=== PATIENT | male | born 1945 | race Caucasian/White ===

== ENCOUNTER → 2022-08-11 12:51 | Outpatient (BNVA) | payer MEDICARE, BC, SELFPAY | PROVIDERS: PCP Nurse Practitioner; Visit Provider Student in an Organized Health Care Education/Training Program | DX: M06.9 Rheumatoid arthritis, unspecified (principal) | CPT/HCPCS: 99202 ==

== ENCOUNTER 2023-02-09 09:28 | Outpatient (AMB) | payer MEDICARE, BC, SELFPAY ==
[2023-02-09 09:32] VITALS: BP 126/68; PULSE 61; TEMP 36.3; O2SAT 97; BMI 25.9
--- NOTE | 2023-02-09 09:32 | MHC.OFFVIS ---
Intake Vital Signs 02/09/23 09:32 Height 5 ft 9 in Weight 175 lb 7.807 oz BMI 25.9 BP 126/68 Blood Pressure Location Rt brachial Position Sitting Pulse 61 Pulse Source Pulse Oximeter Temp 97.4 F Temp Source Skin Pulse Oximetry (%) 97 Intake Visit Reasons: RA Intake Note: Pt seen today for RA. Reports left knee flare up November 17, lasted 3 weeks. Cosmetic Account Coordinator Required: No Accompanied by: Self / Same As Patient Allergies atorvastatin Allergy (Intermediate, Verified 02/09/23 09:35) muscle pain Penicillins Allergy (Intermediate, Verified 02/09/23 09:35) Diarrhea rosuvastatin [From Crestor] Allergy (Intermediate, Verified 02/09/23 09:35) joint pain tramadol Allergy (Intermediate, Verified 02/09/23 09:35) Diarrhea Medication List - Last Reconciled 02/09/23 by Juan Mejia MD amitriptyline 10 mg PO BEDTIME cholecalciferol (vitamin D3) 125 mcg PO DAILY docusate sodium 200 mg SD DAILY PRN docusate sodium (Colace) 200 mg PO DAILY hydroxychloroquine 200 mg PO BID magnesium 200 mg PO DAILY metoprolol tartrate 50 mg PO BID morphine 15 mg PO BID PRN morphine ER 15 mg PO TID naloxone 4 mg/actuation (Narcan) 4 mg intranasal Q3M PRN pravastatin 40 mg PO DAILY tamsulosin 0.4 mg PO DAILY HPI HPI Comments History of Present Illness Details This is a 77-year-old male with seronegative RA who presents for follow-up. Doing well overall currently. Last month patient woke up 1 day with abrupt pain and stiffness of his left knee. He iced it and applied an ice bandage and it slowly resolved in 3 weeks. He states that he had a similar attack back in 2019 when he was admitted at the hospital. On the day of discharge he had a similar attack. 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 He had a meniscus surgery back in the 80s. Recently he was evaluated by Orthopedics and was told he needed knee replacement. Patient walks with a limp due to lack discrepancy between his right and left legs. He is putting off the knee replacement as he is taking care of his who has multiple medical problems. Initial history: This is a 77-year-old male with a past medical history of AFib, gastritis, dyslipidemia, LORA presents for evaluation of history of arthritis patient stated he started developing bilateral hand pain and stiffness as well as left shoulder pain and stiffness in 2019. He was evaluated by Dr. Kraus started on hydroxychloroquine. Patient stated that after 3 months on hydroxychloroquine his symptoms significantly improved. He denies being on any other DMARDs such as methotrexate. He was evaluated by Dr. Salazar twice last year until she left the practice. Patient had left knee meniscal surgery in 1979 when it was not an arthroscopic surgery. He states that continues to have left knee contracture. Bilateral knee replacement was recommended but patient refused. Today patient has no complaints. He gets yearly eye exam. 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 Review of Systems [employer] [employer] [facility] [place] Reports arthralgias, Reports limited range of motion and Reports stiffness Physical Exam Vital Signs: Last Vital Signs Temp 97.4 F 02/09/23 09:32 Pulse 61 02/09/23 09:32 BP 126/68 02/09/23 09:32 Pulse Ox 97 02/09/23 09:32 BMI result Body Mass Index 25.9 Const General: cooperative, healthy appearing, comfortable and no acute distress Nutritional Appearance: average body habitus Orientation/consciousness: patient oriented x3 Limitations: no limitations HEENT Head: Yes normocephalic and Yes atraumatic Mouth: moist mucous membranes Resp Effort & Inspection: normal respiratory effort and able to speak in complete sentences Auscultation: clear to auscultation bilaterally Cardio Rate: regular rate Rhythm: regular rhythm Heart sounds: S1 normal heart sound present GI Inspection: No distended Palpation (GI): Soft to palpation and nontender Skin General skin exam: no rashes or lesions noted Neuro General: patient oriented x3 Extrem Other: S/p right middle finger trigger release with milde residual contracture of the right middle finger flexor tendon No active synovitis Mild osteoarthritic changes of both hands Mild left knee warmth and contracture, cannot fully straighten left knee. Significant left knee crepitus Normal nailfold capillaroscopy Assessment & Plan Assessment & Plan (1) Rheumatoid arthritis: Comment: seroneg dx 2019 HCQ started 2019 Code(s): M06.9 - Rheumatoid arthritis, unspecified Qualifiers: Rheumatoid arthritis location: multiple sites Rheumatoid factor presence: unspecified presence Qualified Code(s): M06.9 - Rheumatoid arthritis, unspecified Plan: This is a 77-year-old male with seronegative RA who presents for follow-up. Doing well overall. No synovitis on exam. Continue hydroxychloroquine 200 mg bid The intermittent pain and stiffness of his left knee can be an RA flare verses OA flare verses gout or pseudogout. Advised patient to call the office if he gets another flare. Follow-up in 6 months (2) Long-term use of hydroxychloroquine: Code(s): Z79.899 - Other detention (current) drug therapy Plan: Side effects of Plaquenil were discussed with patient is including but not limited to allergic reaction, retinal toxicity, cardiomyopathy, myopathy, cytopenias. Continue yearly eye exam. States that he has an eye exam next month Plan I spent 27 minutes reviewing patient's chart, evaluating patient, ordering diagnostic workup, counseling patient and documenting in the chart Coding Level of Care Code Est Pt Level 4 (44436) Diagnoses Rheumatoid arthritis M06.9 Rheumatoid arthritis location: multiple sites Rheumatoid factor presence: unspecified presence Long-term use of hydroxychloroquine Z79.899
== END 2023-02-09 10:06 | disposition home or self-care (01) ==
PROVIDERS: PCP Nurse Practitioner; Visit Provider Student in an Organized Health Care Education/Training Program
DX: M06.9 Rheumatoid arthritis, unspecified (principal); Z79.899 Other long term (current) drug therapy
CPT/HCPCS: 99214

== ENCOUNTER → 2023-02-09 09:28 | Outpatient (BNVA) | payer MEDICARE, BC, SELFPAY | PROVIDERS: Visit Provider Student in an Organized Health Care Education/Training Program | DX: M06.09 Rheumatoid arthritis without rheumatoid factor, multiple sites (principal); Z79.899 Other long term (current) drug therapy | CPT/HCPCS: 99212 ==

== ENCOUNTER 2023-08-12 09:10 | Outpatient (AMB) | payer MEDICARE, BC, SELFPAY ==
--- NOTE | 2023-08-12 09:21 | MHC.OFFVIS ---
Intake Vital Signs 08/12/23 09:22 Height 5 ft 9 in Weight 174 lb 9.698 oz BMI 25.8 BP 120/64 Blood Pressure Location Lt brachial Position Sitting Pulse 62 Pulse Source Pulse Oximeter Temp 97.3 F Temp Source Skin Pulse Oximetry (%) 96 Oxygen Delivery Method Room Air Intake Visit Reasons: RA Intake Note: Patient last seen 02/09/23 presents today for follow up. Reports increased joint pain. Eye Dropper Assembler Required: No Accompanied by: Self / Same As Patient Allergies atorvastatin Allergy (Intermediate, Verified 08/12/23 09:25) muscle pain Penicillins Allergy (Intermediate, Verified 08/12/23 09:25) Diarrhea rosuvastatin [From Crestor] Allergy (Intermediate, Verified 08/12/23 09:25) joint pain tramadol Allergy (Intermediate, Verified 08/12/23 09:25) Diarrhea Medication List - Last Reconciled 08/12/23 by Juan Mejia MD amitriptyline 10 mg PO BEDTIME cholecalciferol (vitamin D3) 125 mcg PO DAILY docusate sodium 200 mg OR DAILY PRN docusate sodium (Colace) 200 mg PO DAILY hydroxychloroquine 200 mg PO BID magnesium 200 mg PO DAILY metoprolol tartrate 50 mg PO BID morphine 15 mg PO BID PRN morphine ER 15 mg PO TID naloxone 4 mg/actuation (Narcan) 4 mg intranasal Q3M PRN pravastatin 40 mg PO DAILY tamsulosin 0.4 mg PO DAILY HPI HPI Comments History of Present Illness Details This is a 78-year-old male with seronegative RA who presents for follow-up. On Plaquenil 200 mg Twice daily. Well-tolerated. He states that recently has been having increased joint pain. Most specifically he has been having pain on the outside of his hips. Pain is worse when he lies on his side. Also he would have episodes of his left knee locking up while sleeping associated with left leg and calf pain. A few days ago he had to get up from his bed and walk around until it loosened up. He also had a few episodes where his right elbow locked up then it unlocks spontaneously. Patient is quite busy at home doing all the housework in addition to shoveling, watering the plants. He takes care of his . Initial history: This is a 77-year-old male with a past medical history of AFib, gastritis, dyslipidemia, LORA presents for evaluation of history of arthritis patient stated he started developing bilateral hand pain and stiffness as well as left shoulder pain and stiffness in 2019. He was evaluated by Dr. Kraus started on hydroxychloroquine. Patient stated that after 3 months on hydroxychloroquine his symptoms significantly improved. He denies being on any other DMARDs such as methotrexate. He was evaluated by Dr. Salazar twice last year until she left the practice. Patient had left knee meniscal surgery in 1979 when it was not an arthroscopic surgery. He states that continues to have left knee contracture. Bilateral knee replacement was recommended but patient refused. Today patient has no complaints. He gets yearly eye exam. 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 Review of Systems [facility] [place] arthralgias, Reports limited range of motion and Reports stiffness Physical Exam Vital Signs: Last Vital Signs Temp 97.3 F 08/12/23 09:22 Pulse 62 08/12/23 09:22 BP 120/64 08/12/23 09:22 Pulse Ox 96 08/12/23 09:22 Oxygen Delivery Method Room Air 08/12/23 09:22 BMI result Body Mass Index 25.8 Const General: cooperative, healthy appearing, comfortable and no acute distress Nutritional Appearance: average body habitus Orientation/consciousness: patient oriented x3 Limitations: no limitations HEENT Head: Yes normocephalic and Yes atraumatic Mouth: moist mucous membranes Resp Effort & Inspection: normal respiratory effort and able to speak in complete sentences Auscultation: clear to auscultation bilaterally Cardio Rate: regular rate Rhythm: regular rhythm Heart sounds: S1 normal heart sound present GI Inspection: No distended Palpation (GI): Soft to palpation and nontender Skin General skin exam: no rashes or lesions noted Neuro General: patient oriented x3 Extrem Other: S/p right middle finger trigger release with milde residual contracture of the right middle finger flexor tendon No tenderness at the common extensor origin bilaterally with negative resisted wrist extension test bilaterally, negative resisted wrist flexion test bilaterally Normal range of motion of shoulders Left trochanteric bursa area tenderness with negative Xuan's test No active synovitis Mild osteoarthritic changes of both hands Mild left knee warmth and contracture, cannot fully straighten left knee. Significant left knee crepitus Normal nailfold capillaroscopy Assessment & Plan Assessment & Plan (1) Rheumatoid arthritis: Comment: seroneg dx 2019 HCQ started 2019 Code(s): M06.9 - Rheumatoid arthritis, unspecified Qualifiers: Rheumatoid arthritis location: multiple sites Rheumatoid factor presence: unspecified presence Qualified Code(s): M06.9 - Rheumatoid arthritis, unspecified Plan: This is a 77-year-old male with seronegative RA who presents for follow-up. Doing well overall. No synovitis on exam. Continue hydroxychloroquine 200 mg bid Patient's joint pains today are likely mechanical and degenerative in nature.. He states that he has had blood work recently and was seen by a comic artist. Will request records Follow-up in 6 months (2) Long-term use of hydroxychloroquine: Code(s): Z79.899 - Other termite control service representative (current) drug therapy Plan: Side effects of Plaquenil were discussed with patient is including but not limited to allergic reaction, retinal toxicity, cardiomyopathy, myopathy, cytopenias. Continue yearly eye exam. Was last seen by automotive parts specialist Dr. Peterson 03/2023 and was cleared. Will request records (3) Trochanteric bursitis, left hip: Code(s): M70.62 - Trochanteric bursitis, left hip Plan: Provide patient of print out of home exercises to do Plan I spent 27 minutes reviewing patient's chart, evaluating patient, counseling patient and documenting in the chart Coding Level of Care Code Est Pt Level 4 (02289) Diagnoses Rheumatoid arthritis involving multiple sites, unspecified whether rheumatoid factor present M06.9 Rheumatoid arthritis location: multiple sites Rheumatoid factor presence: unspecified presence Long-term use of hydroxychloroquine Z79.899 Trochanteric bursitis, left hip M70.62
[2023-08-12 09:22] VITALS: BP 120/64; PULSE 62; TEMP 36.3; O2SAT 96; BMI 25.8
== END 2023-08-12 09:55 | disposition home or self-care (01) ==
PROVIDERS: PCP Nurse Practitioner; Visit Provider Student in an Organized Health Care Education/Training Program
DX: M06.9 Rheumatoid arthritis, unspecified (principal); Z79.899 Other long term (current) drug therapy; M70.62 Trochanteric bursitis, left hip
CPT/HCPCS: 99214

== ENCOUNTER → 2023-08-12 09:10 | Outpatient (BNVA) | payer MEDICARE, BC, SELFPAY | PROVIDERS: PCP Nurse Practitioner; Visit Provider Student in an Organized Health Care Education/Training Program | DX: M06.9 Rheumatoid arthritis, unspecified (principal); M70.62 Trochanteric bursitis, left hip; Z79.899 Other long term (current) drug therapy | CPT/HCPCS: 99212 ==

== ENCOUNTER 2024-02-10 07:49 | Outpatient (AMB) | payer MEDICARE, BC, SELFPAY ==
--- NOTE | 2024-02-10 07:58 | MHC.OFFVIS ---
Vital Signs 02/10/24 08:01 Height 5 ft 9 in Weight 177 lb 4.026 oz BMI 26.2 BP 120/64 Blood Pressure Location Lt brachial Position Sitting Pulse 71 Pulse Source Pulse Oximeter Pulse Oximetry (%) 96 Oxygen Delivery Method Room Air Intake Visit Reasons: RA Intake Note: Patient presents for RA. Allergies atorvastatin Allergy (Intermediate, Verified 02/10/24 08:01) muscle pain Penicillins Allergy (Intermediate, Verified 02/10/24 08:01) Diarrhea rosuvastatin [From Crestor] Allergy (Intermediate, Verified 02/10/24 08:01) joint pain tramadol Allergy (Intermediate, Verified 02/10/24 08:01) Diarrhea Medication List - Last Reconciled 02/10/24 by Juan Mejia MD amitriptyline 10 mg PO BEDTIME cholecalciferol (vitamin D3) 125 mcg PO DAILY docusate sodium 200 mg HI DAILY PRN docusate sodium (Colace) 200 mg PO DAILY hydroxychloroquine 200 mg PO BID magnesium 200 mg PO DAILY metoprolol tartrate 50 mg PO BID morphine 15 mg PO BID PRN morphine ER 15 mg PO TID naloxone 4 mg/actuation (Narcan) 4 mg intranasal Q3M PRN pravastatin 40 mg PO DAILY tamsulosin 0.4 mg PO DAILY HPI Comments Details: This is a 78-year-old male with seronegative RA who presents for follow-up. On Plaquenil 200 mg Twice daily. Well-tolerated. Recently finished a course of PT for spinal stenosis. States that direction significantly helped his symptoms. 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 He has tingling burning and numbness of his feet. He takes morphine for it. He gets intermittent pain and stiffness of the base of his left thumb. Improved with topical lidocaine Initial history: This is a 77-year-old male with a past medical history of AFib, gastritis, dyslipidemia, LORA presents for evaluation of history of arthritis patient stated he started developing bilateral hand pain and stiffness as well as left shoulder pain and stiffness in 2019. He was evaluated by Dr. Kraus started on hydroxychloroquine. Patient stated that after 3 months on hydroxychloroquine his symptoms significantly improved. He denies being on any other DMARDs such as methotrexate. He was evaluated by Dr. Salazar twice last year until she left the practice. Patient had left knee meniscal surgery in 1979 when it was not an arthroscopic surgery. He states that continues to have left knee contracture. Bilateral knee replacement was recommended but patient refused. Today patient has no complaints. He gets yearly eye exam. 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 of [employer] Reports arthralgias, Reports numbness and Reports tingling Neuro Reports numbness and Reports tingling Physical Exam Vital Signs: Last Vital Signs Pulse 71 02/10/24 08:01 BP 120/64 02/10/24 08:01 Pulse Ox 96 02/10/24 08:01 Oxygen Delivery Method Room Air 02/10/24 08:01 BMI result Body Mass Index 26.2 Const General: cooperative, healthy appearing, comfortable and no acute distress Nutritional Appearance: average body habitus Orientation/consciousness: patient oriented x3 Limitations: no limitations HEENT Head: Yes normocephalic and Yes atraumatic Mouth: moist mucous membranes Resp Effort & Inspection: normal respiratory effort and able to speak in complete sentences Auscultation: clear to auscultation bilaterally Cardio Rate: regular rate Rhythm: regular rhythm Heart sounds: S1 normal heart sound present GI Inspection: No distended Palpation (GI): Soft to palpation and nontender Skin General skin exam: no rashes or lesions noted Neuro General: patient oriented x3 Extrem Other: S/p right middle finger trigger release with mild residual contracture of the right middle finger flexor tendon Normal range of motion of shoulders No active synovitis osteoarthritic changes of both hands Assessment & Plan Assessment & Plan (1) Rheumatoid arthritis: Comment: seroneg dx 2019 HCQ started 2019 Code(s): M06.9 - Rheumatoid arthritis, unspecified Category: Medical Qualifiers: Rheumatoid arthritis location: multiple sites Rheumatoid factor presence: unspecified presence Qualified Code(s): M06.9 - Rheumatoid arthritis, unspecified Plan: This is a 78-year-old male with seronegative RA who presents for follow-up. Doing well overall. No synovitis on exam. Continue hydroxychloroquine 200 mg bid Patient's intermittent joint pains today are likely mechanical and degenerative in nature. Labs before next visit Follow-up in 6 months (2) Long-term use of hydroxychloroquine: Code(s): Z79.899 - Other fdc (current) drug therapy Category: Medical Plan: Side effects of Plaquenil were discussed with patient is including but not limited to allergic reaction, retinal toxicity, cardiomyopathy, myopathy, cytopenias. Continue yearly eye exam. Was last seen by internet marketing analyst Dr. Peterson 03/2023 and was cleared. 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 Advised patient to call the office if he would like a refill Plan I spent 27 minutes reviewing patient's chart, evaluating patient, ordering diagnostic workup, counseling patient and documenting in the chart Orders: Orders Comprehensive Met. Panel 6 Months M06.9 - Rheumatoid arthritis, unspecified, Z79.899 - Other terminal block assembler (current) drug therapy Erythrocyte Sedimentation Rate 6 Months M06.9 - Rheumatoid arthritis, unspecified, Z79.899 - Other fdc (current) drug therapy Complete Blood Count Auto Diff 6 Months M06.9 - Rheumatoid arthritis, unspecified, Z79.899 - Other fdc (current) drug therapy C Reactive Protein 6 Months M06.9 - Rheumatoid arthritis, unspecified, Z79.899 - Other fdc (current) drug therapy Medications: New alpha lipoic acid 600 mg PO DAILY 30 caps 0RF Coding Level of Care Code Est Pt Level 4 (65549) Diagnoses Rheumatoid arthritis involving multiple sites, unspecified whether rheumatoid factor present M06.9 Rheumatoid arthritis location: multiple sites Rheumatoid factor presence: unspecified presence Long-term use of hydroxychloroquine Z79.899 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
[2024-02-10 08:01] VITALS: BP 120/64; PULSE 71; O2SAT 96; BMI 26.2
== END 2024-02-10 08:18 | disposition home or self-care (01) ==
PROVIDERS: PCP Nurse Practitioner; Visit Provider Student in an Organized Health Care Education/Training Program
DX: M06.9 Rheumatoid arthritis, unspecified (principal); Z79.899 Other long term (current) drug therapy; G62.2 Polyneuropathy due to other toxic agents
CPT/HCPCS: 99214

== ENCOUNTER → 2024-02-10 07:49 | Outpatient (BNVA) | payer MEDICARE, BC, SELFPAY | PROVIDERS: PCP Nurse Practitioner; Visit Provider Student in an Organized Health Care Education/Training Program | DX: M06.00 Rheumatoid arthritis without rheumatoid factor, unspecified site (principal); G62.2 Polyneuropathy due to other toxic agents; Z79.899 Other long term (current) drug therapy | CPT/HCPCS: 99212 ==

== ENCOUNTER 2024-04-19 09:20 | Outpatient (AMB) | payer MEDICARE, BC, SELFPAY ==
--- NOTE | 2024-04-19 09:30 | A.OFFVIS_ITS ---
Intake Visit Reasons: penile pain/BPH/FHX Prostate Ca Intake Note: Patient is present for PENILE PAIN/BPH/FHX PROSTATE CA Urology Medication:TAMSULOSIN Antibiotic Allergy:PENICILLIN Blood Thinner:NONE TODAY'S PVR:0ML'S Food Order Delivery Runner Required: No Allergies atorvastatin Allergy (Intermediate, Verified 04/19/24 09:31) muscle pain Penicillins Allergy (Intermediate, Verified 04/19/24 09:31) Diarrhea rosuvastatin [From Crestor] Allergy (Intermediate, Verified 04/19/24 09:31) joint pain tramadol Allergy (Intermediate, Verified 04/19/24 09:31) Diarrhea Medication List - Last Reconciled 04/19/24 by Nhan Rubio MD alpha lipoic acid 600 mg PO DAILY amitriptyline 10 mg PO BEDTIME cholecalciferol (vitamin D3) 125 mcg PO DAILY docusate sodium 200 mg AR DAILY PRN docusate sodium (Colace) 200 mg PO DAILY doxazosin 4 mg PO BEDTIME 30 days finasteride 5 mg PO DAILY 90 days hydroxychloroquine 200 mg PO BID magnesium 200 mg PO DAILY metoprolol tartrate 50 mg PO BID morphine 15 mg PO BID PRN morphine ER 15 mg PO TID naloxone 4 mg/actuation (Narcan) 4 mg intranasal Q3M PRN pravastatin 40 mg PO DAILY HPI Comments Details: Michi is a pleasant male. He is a patient Dr. Casanova. 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 BPH (benign prostatic hyperplasia) Gastritis Atrial fibrillation LORA (obstructive sleep apnea) Insomnia Mixed hyperlipidemia Surgical History Hx of knee surgery H/O hernia repair Cataract Family History Mother Cervical cancer Father Prostate cancer Maternal Aunt Rheumatoid arthritis Social History Household Members: Spouse Alcohol intake: never Patient Tobacco Use Status: Former Tobacco user Years Smoked: 23 years Current occupational status: retired 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 Review of Systems Const Denies chills and Denies fever(s) Card Reports no additional complaints and Denies syncope Resp Denies cough GI Denies abdominal pain and Denies heartburn Reports as per HPI and Denies change in libido Neuro Denies syncope Psych Denies change in libido Endo Denies change in libido Physical Exam Const General: cooperative, healthy appearing, comfortable and no acute distress Orientation/consciousness: patient oriented x3 HEENT Face and sinus: Yes normal facial exam Mouth: moist mucous membranes Neck Neck: Yes normal visual inspection, Yes full ROM and Yes trachea midline Chest Chest palpation & inspection: normal inspection of the chest Resp Effort & Inspection: normal respiratory effort, able to speak in complete sentences and no respiratory distress GI Inspection: Yes normal to inspection Rectal Exam - Male: Yes normal sphincter tone and Yes prostate normal Male General Exam: Yes normal external exam Penis: normal penis and circumcised Meatus: meatus normal Scrotum: scrotum normal Testes: Testes normal Back/Spine/Pelvis Cervical Spine: normal cervical lordosis Thoracic/Lumbar Spine: thoracic and lumbar spine normal to inspection Skin General skin exam: no rashes or lesions noted Neuro General: patient oriented x3, gait normal, tone normal and moves all extremities Extrem General: Yes normal to inspection and Yes capillary refill normal Office Procedures Post Void Residual Post Residual Void Post Void Residual (PVR): 0 [id number]-[id number] Void Residual by ultrasound Assessment & Plan Assessment & Plan (1) Weak urinary stream: Code(s): R39.12 - Poor urinary stream Category: Medical (2) Incomplete emptying of bladder due to benign prostatic hyperplasia: Code(s): N40.1 - Benign prostatic hyperplasia with lower urinary tract symptoms; R33.9 - Retention of urine, unspecified Category: Medical Plan Three-month follow-up tele Trial BPH meds Orders: Orders AMB Urinalysis Automated Today Z13.9 - Encounter for screening, unspecified Medications: New doxazosin 4 mg PO BEDTIME 30 days 30 tabs 2RF N40.1 - Benign prostatic hyperplasia with lower urinary tract symptoms, R33.9 - Retention of urine, unspecified finasteride 5 mg PO DAILY 90 days 90 tabs 1RF N40.1 - Benign prostatic hyperplasia with lower urinary tract symptoms, R33.9 - Retention of urine, unspecified Patient Instructions: Imaging studies, laboratory and physical exam results were discussed and rev iewed in detail. No major barriers to patient understanding were identified. An opportunity to ask questions regarding the treatment plan was provided. All questions were answered. The patient expressed understanding and agreement with the above treatment plan. The patient is aware they should contact our office by phone for worsening of their current condition or the appearance of new urologic symptoms. Compliance is encouraged with any medications and followup testing that is ordered. It is a privilege to participate in the urologic care of your patient. If you have any questions or concerns regarding treatment for the above conditions, or other urologic issues, please do not hesitate to contact me. The office telephone contact is [phone]. This note is constructed using voice recognition software. While every effort has been made to ensure accuracy sports leadership instructor errors may have been included. Yours sincerely, Dr Nhan Rubio MD, [facility] - Urology Providers of Expert, Compassionate Care for the Genitourinary System Coding Level of Care Code New Pt Level 4 (74972) Diagnoses Weak urinary stream R39.12 Incomplete emptying of bladder due to benign prostatic hyperplasia N40.1; R33.9 CPT Codes Post Residual Void - PVR CPT Code: 95322-Xixt Void Residual by ultrasound ([id number])
== END 2024-04-19 10:13 | disposition home or self-care (01) ==
PROVIDERS: PCP Nurse Practitioner; Visit Provider Urology
DX: N40.1 Benign prostatic hyperplasia with lower urinary tract symptoms (principal); R39.12 Poor urinary stream; R33.9 Retention of urine, unspecified
CPT/HCPCS: 99204

== ENCOUNTER → 2024-04-19 09:20 | Outpatient (BNVA) | payer MEDICARE, BC, SELFPAY | PROVIDERS: PCP Nurse Practitioner; Visit Provider Urology | DX: N40.1 Benign prostatic hyperplasia with lower urinary tract symptoms (principal); R39.12 Poor urinary stream; R33.9 Retention of urine, unspecified | CPT/HCPCS: 51798; 99202 ==

== ENCOUNTER 2024-07-25 09:18 | Outpatient (AMB) | payer MEDICARE, BC, SELFPAY ==
--- NOTE | 2024-07-25 09:18 | A.OFFVIS_ITS ---
Intake Visit Reasons: 3M Med Review(Doxazosin/Finasteride) Intake Note: Patient is present for 3M MED REVIEW Urology Medication:DOXAZOSIN,FINASTERIDE Antibiotic Allergy:ATORVASTATIN,PENICILLIN,ROSUVASTATIN Blood Thinner:NONE Health Technician Required: No Allergies atorvastatin Allergy (Intermediate, Verified 07/25/24 09:19) muscle pain Penicillins Allergy (Intermediate, Verified 07/25/24 09:19) Diarrhea rosuvastatin [From Crestor] Allergy (Intermediate, Verified 07/25/24 09:19) joint pain tramadol Allergy (Intermediate, Verified 07/25/24 09:19) Diarrhea HPI Comments Details: Michi is a pleasant male. He is a patient Dr. Casanova. 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 BPH (benign prostatic hyperplasia) Gastritis Atrial fibrillation LORA (obstructive sleep apnea) Insomnia Mixed hyperlipidemia Surgical History Hx of knee surgery H/O hernia repair Cataract Family History Mother Cervical cancer Father Prostate cancer Maternal Aunt Rheumatoid arthritis Social History Household Members: Spouse Alcohol intake: never Patient Tobacco Use Status: Former Tobacco user Years Smoked: 23 years Current occupational status: retired 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 Review of Systems Const All systems reviewed & are unremarkable except as noted in HPI and below Reports no additional complaints Resp Reports no additional complaints GI Reports no additional complaints Reports as per HPI Musc Reports no additional complaints Physical Exam Telemedicine evaluation Appropriate responses Regular breathing rate and rhythm HEENT Head: Yes normal to inspection Ears: hearing grossly normal bilaterally Eyes General: appearance normal, both eyes and all related structures Neck Neck: Yes normal visual inspection Chest Chest palpation & inspection: normal inspection of the chest Resp Effort & Inspection: normal respiratory effort and able to speak in complete sentences Telehealth Telehealth Telehealth Platform: [employer] Location of provider rendering services: practice address Location of patient: address on file Patient Identification confirmed using: Name, : Yes Telehealth method: video Patient verbally consented to treatment: Yes Patient verbally consented to billing insurance company: Yes Patient informed of any privacy concerns related to visit: Yes Minutes spent on Phone/Video with Pt.: 15 Assessment & Plan Assessment & Plan (1) Incomplete emptying of bladder due to benign prostatic hyperplasia: Code(s): N40.1 - Benign prostatic hyperplasia with lower urinary tract symptoms; R33.9 - Retention of urine, unspecified Category: Medical (2) Weak urinary stream: Code(s): R39.12 - Poor urinary stream Category: Medical Plan Six-month follow-up PVR office Medications: Changed From doxazosin 4 mg PO BEDTIME 30 days 30 tabs 2RF N40.1 - Benign prostatic hyperplasia with lower urinary tract symptoms, R33.9 - Retention of urine, unspecified To doxazosin 4 mg PO BEDTIME 90 tabs 1RF 90 days N40.1 - Benign prostatic hyperplasia with lower urinary tract symptoms, R33.9 - Retention of urine, unspecified Refilled finasteride 5 mg PO DAILY 90 tabs 1RF 90 days N40.1 - Benign prostatic hyperplasia with lower urinary tract symptoms, R33.9 - Retention of urine, unspecified Patient Instructions: Imaging studies, laboratory and physical exam results were discussed and reviewed in detail. No major barriers to patient understanding were identified. An opportunity to ask questions regarding the treatment plan was provided. All questions were answered. The patient expressed understanding and agreement with the above treatment plan. The patient is aware they should contact our office by phone for worsening of their current condition or the appearance of new urologic symptoms. Compliance is encouraged with any medications and followup testing that is ordered. It is a privilege to participate in the urologic care of your patient. If you have any questions or concerns regarding treatment for the above conditions, or other urologic issues, please do not hesitate to contact me. The office telephone contact is [phone]. This note is constructed using voice recognition software. While every effort has been made to ensure accuracy vice president of brand management errors may have been included. Yours sincerely, Dr Nhan Rubio MD, [facility] - Urology Providers of Expert, Compassionate Care for the Genitourinary System Coding Level of Care Code Tele Est Pt Level 3 (04601) Diagnoses Incomplete emptying of bladder due to benign prostatic hyperplasia N40.1; R33.9 Weak urinary stream R39.12
== END 2024-07-25 10:06 | disposition home or self-care (01) ==
LOC: HO.HUSH 09:18
PROVIDERS: PCP Nurse Practitioner; Visit Provider Urology
DX: N40.1 Benign prostatic hyperplasia with lower urinary tract symptoms (principal); R33.9 Retention of urine, unspecified; R39.12 Poor urinary stream
CPT/HCPCS: 99213

== ENCOUNTER 2024-10-17 08:34 | Outpatient (REF) | payer MEDICARE, BC, SELFPAY ==
[2024-10-17 09:47] LABS: MANUAL DIFF FLAG NO
[2024-10-17 09:58] LABS: Basophils Percent Auto 0.3 % (0-2); Eosinophils Absolute Auto 0.1 X10*3/uL (0.0-0.4); Eosinophils Percent Auto 4.4 % (0-4); Hematocrit 35.7 % (42.0-52.0); Hemoglobin 12.3 g/dl (14.0-18.0); Imm Gran Abs Auto 0.01 X10*3/uL (0.00-0.03); Imm Gran Pct Auto 0.3 % (0.0-0.4); Lymphocytes Percent Auto 32.8 % (20-40); Mean Corpuscular HGB Conc 34.5 g/dl (31.0-36.0); Mean Corpuscular Hemoglobin 31.1 pg (27.0-33.0); Mean Corpuscular Volume 90.4 fL (80.0-98.0); Monocytes Absolute Auto 0.3 X10*3/uL (0.1-1.2); Monocytes Percent Auto 9.5 % (2-11); Neutrophils Absolute Auto 1.7 x10*3/uL (2.0-8.3); Neutrophils Percent Auto 52.7 % (45-73); Platelet Count 135 X10*3/uL (160-400); Red Blood Count 3.95 X10*6/uL (4.60-5.80); Red Cell Distribution Width 13.1 % (11.0-16.0); White Blood Count 3.2 X10*3/uL (4.8-10.8)
[2024-10-17 10:03] LABS: Alanine Aminotransferase 19 U/L (0-40); Albumin Level 3.8 g/dL (3.5-5.0); Alkaline Phosphatase 46 U/L (39-117); Anion Gap 7 (12-20); Aspartate Amino Transferase 24 U/L (5-37); Bilirubin Total 0.5 mg/dL (0.0-1.0); Blood Urea Nitrogen 15 mg/dL (9-16); C Reactive Protein < 0.10 mg/dL (< or = 0.50); Calcium 9.1 mg/dL (8.4-10.2); Carbon Dioxide 28 mmol/L (22-29); Chloride 108 mmol/L (96-108); Estimated Glomerular Filt Rate > 60; Glucose Random 132 mg/dL (60-115); Potassium 3.9 mmol/L (3.3-5.1); Sodium 139 mmol/L (135-145); Total Protein 6.1 g/dL (6.5-8.0)
[2024-10-17 10:32] LABS: Erythrocyte Sedimentation Rate 7 MM/HR (0-15)
== END 2024-10-17 08:35 | disposition home or self-care (01) ==
LOC: HO.10HDL 08:34
PROVIDERS: Visit Provider Student in an Organized Health Care Education/Training Program
DX: M06.9 Rheumatoid arthritis, unspecified (principal); Z79.899 Other long term (current) drug therapy
CPT/HCPCS: 36415; 80053; 85025; 85652; 86140

== ENCOUNTER 2024-12-21 08:31 | Outpatient (AMB) | payer MEDICARE, BC, SELFPAY ==
--- NOTE | 2024-12-21 08:45 | A.OFFVIS_ITS ---
Vital Signs 12/21/24 08:49 Height 5 ft 9 in Weight 185 lb 3.013 oz BMI 27.3 BP 116/62 Blood Pressure Location Rt brachial Position Sitting Pulse 73 Pulse Source Pulse Oximeter Pulse Oximetry (%) 97 Oxygen Delivery Method Room Air Intake Visit Reasons: RA Intake Note: Patient presents for RA follow up and test results. Allergies atorvastatin Allergy (Intermediate, Verified 12/21/24 08:48) muscle pain Penicillins Allergy (Intermediate, Verified 12/21/24 08:48) Diarrhea rosuvastatin [From Crestor] Allergy (Intermediate, Verified 12/21/24 08:48) joint pain tramadol Allergy (Intermediate, Verified 12/21/24 08:48) Diarrhea Medication List - Last Reconciled 12/21/24 by Ludy Curiel MD alpha lipoic acid 600 mg PO DAILY amitriptyline 10 mg PO BEDTIME cholecalciferol (vitamin D3) 125 mcg PO DAILY docusate sodium 200 mg ND DAILY PRN docusate sodium (Colace) 200 mg PO DAILY doxazosin 4 mg PO BEDTIME 90 days finasteride 5 mg PO DAILY 90 days hydroxychloroquine 200 mg PO BID magnesium 200 mg PO DAILY metoprolol tartrate 50 mg PO BID morphine 15 mg PO BID PRN morphine ER 15 mg PO TID naloxone 4 mg/actuation (Narcan) 4 mg intranasal Q3M PRN pravastatin 40 mg PO DAILY HPI Comments Details: Patient is an 79-year-old male with AFib, 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 Interval History: Patient last seen 02/10/[address] Mejia. At that time he was on Plaquenil 200 mg twice a day and was tolerating this medication well. Continues to have tingling and burning of his feet due to his peripheral neuropathy for which she takes morphine. No synovitis on examination. He was given a trial of alpha lipoic acid for his neuropathy Patient did not notice much improvement on the alpha lipoic acid No flares of his rheumatoid arthritis Requesting injection for his left 1st CMC joint Rheumatologic History: Initial history: This is a 77-year-old male with a past medical history of AFib, gastritis, dyslipidemia, LORA presents for evaluation of history of arthritis patient stated he started developing bilateral hand pain and stiffness as well as left shoulder pain and stiffness in 2019. He was evaluated by Dr. Kraus started on hydroxychloroquine. Patient stated that after 3 months on hydroxychloroquine his symptoms significantly improved. He denies being on any other DMARDs such as methotrexate. He was evaluated by Dr. Salazar twice last year until she left the practice. Patient had left knee meniscal surgery in 1979 when it was not an arthroscopic surgery. He states that continues to have left knee contracture. Bilateral knee replacement was recommended but patient refused. Today patient has no complaints. He gets yearly eye exam. 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 BPH (benign prostatic hyperplasia) Gastritis Atrial fibrillation LORA (obstructive sleep apnea) Insomnia Mixed hyperlipidemia Surgical History Hx of knee surgery H/O hernia repair Cataract Family History Mother Cervical cancer Father Prostate cancer Maternal Aunt Rheumatoid arthritis Social History Household Members: Spouse Alcohol intake: never Patient Tobacco Use Status: Former Tobacco user Years Smoked: 23 years Current occupational status: retired 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 Review of Systems Const Details: Review of Systems Constitutional: Denies fever, chills, weight loss ENT: Denies vision changes, eye pain or eye redness, dental caries, dry mouth GI: Denies nausea, vomiting, diarrhea, abdominal pain, change in BM Pulm: Denies SOB, DAO, hemoptysis, wheezing Cards: Denies chest pain, palpitations Skin: Denies Raynaud's, rash, nail changes, photosensitivity, DISTRIBUTOR OF DIRECTORIES: Denies headaches, weakness, paresthesias, recurrent falls MSK: as per HPI All other systems reviewed and are unremarkable except noted above Physical Exam Vital Signs: Last Vital Signs Pulse 73 12/21/24 08:49 BP 116/62 12/21/24 08:49 Pulse Ox 97 12/21/24 08:49 Oxygen Delivery Method Room Air 12/21/24 08:49 BMI result Body Mass Index 27.3 Vital signs reviewed Physical Examination CONSTITUITIONAL Patient alert and cooperative. Well appearing and in no apparent painful distress HEENT Conjunctiva and sclera clear. ?Pupils equal round and reactive to light. ?No lymphadenopathy. ? CHEST/RESPIRATORY SYSTEM Normal respiratory effort and able to speak in complete sentences. ?Clear to auscultation bilaterally. ?No crackles, rales, rhonchi, wheezes heard. CARDIAC SYSTEM Regular rate and rhythm. ?S1 and S2 heard no murmurs. ?Radial pulses intact bilaterally MSK Hands: ?Able to make a fist. No synovitis noted to the MCPs, PIPs or DIPs. ?No tenderness to palpation of these joints. [place] nodes noted. Tenderness to palpation of the left 1st CMC joint Wrists: ?Full range of motion at the wrists without pain. ?No tenderness to palpation or synovitis noted to the wrists. Elbows: Full range of motion without pain. No tenderness, weakness, swelling, increased warmth or erythema. Shoulders: Full range of active range of motion without pain. No tenderness, weakness, swelling, increased warmth or erythema. Knees: ?Full range of motion. ?No tenderness, swelling, increased warmth or erythema.?No effusion. Bandage noted over the left knee. Crepitations felt in bilateral knees Ankles: Full range of motion. ?No tenderness, swelling, increased warmth or erythema.? Feet: ?Negative squeeze test. ?No tenderness to palpation or swelling of the MTPs. Tender points:?No tenderness to palpation of the bilateral trapezius, supraspinatus, greater trochanters, anterior costochondral junctions, bilateral gluteal areas, bilateral suboccipital muscle insertions SKIN Skin intact without rashes. Office Procedures AMB Joint Injection/Aspiration Joint Injection/Aspiration Details: Procedure was explained to the patient and consent was obtained. ? The area of interest was identified and confirmed with patient. ?This was subsequently cleaned with chlorhexidine x3. ? The area was then anesthetized using ethyl chloride spray. 40 mg Kenalog with 1 cc 1% lidocaine was injected without issue. ?Minimal to no bleeding. ?Patient tolerated procedure. Primary Site: left thumb Prep: site was prepped using aseptic technique and ethochloride spray was applied Injected: 40 mg of, Kenalog, with 1 mL of and 1% plain lidocaine Approach Used: other Procedure: The patient tolerated the procedure well Coding - Small Joint Procedure code (CPT) selection complete Office Meds lidocaine (PF) 10 mg/mL (1 %) injection solution Performing Provider: Ludy Curiel MD Performing Location: [facility] [place] Rheumatology Administered by: Ludy Curiel MD on 12/21/24 10:06 Dose Route Admin Location Dispensed Lot Number Expiration Date [facility] Showroom Consultant 1 mL Infiltration left 1st CMC 2 mL [id number] 09/16/26 46344-535-24 [facility] Kenalog 40 mg/mL suspension for injection Performing Provider: Ludy Curiel MD Performing Location: [facility] [place] Rheumatology Administered by: Ludy Curiel MD on 12/21/24 10:06 Dose Route Admin Location Dispensed Lot Number Expiration Date [facility] Showroom Consultant 40 mg intra-articular left 1st CMC 1 mL [id number] 10/17/26 2881-2592-23 [facility] Results Reviewed Results Reviewed: Laboratory Tests 10/17/24 08:36 WBC 3.2 L RBC 3.95 L Hgb 12.3 L Hct 35.7 L Plt Count 135 L ESR 7 Sodium 139 Potassium 3.9 Chloride 108 Carbon Dioxide 28 BUN 15 Creatinine 0.73 AST 24 ALT 19 Alkaline Phosphatase 46 CRP <0.10 Assessment & Plan Assessment & Plan (1) Rheumatoid arthritis: Comment: seroneg dx 2019 HCQ started 2019 Code(s): M06.9 - Rheumatoid arthritis, unspecified Category: Medical Qualifiers: Rheumatoid arthritis location: multiple sites Rheumatoid factor presence: unspecified presence Qualified Code(s): M06.9 - Rheumatoid arthritis, unspecified Plan: #Seronegative RA Patient is an 79-year-old male with seronegative rheumatoid arthritis here today for follow up. Currently in remission on Plaquenil monotherapy. Has a scheduled ophthalmology appointment in March of this year Plan - Plaquenil 200mg bid - RTC 1 year - Labs before visit: CBC, CMP, ESR, CRP (2) Osteoarthritis of carpometacarpal (CMC) joint of left thumb: Code(s): M18.12 - Unilateral primary osteoarthritis of first carpometacarpal joint, left hand Qualifiers: Osteoarthritis type: primary Qualified Code(s): M18.12 - Unilateral primary osteoarthritis of first carpometacarpal joint, left hand Plan: #1st CMC OA s/p steroid injection Continue to splint the finger to help reduce excess movement (3) Long-term use of hydroxychloroquine: Code(s): Z79.899 - Other longwall headgate operator (current) drug therapy Category: Medical Plan: #Long-term Use of Hydroxychloroquine Discussed with patient the risks and benefits of hydroxychloroquine in managing the rheumatic condition Benefits include: - Reduced pain, reduce mortality, maintenance of remission and reduction of flares Risks include: - GI upset, skin hyperpigmentation, retinal toxicity (especially after more than 5 years of use), myopathy Advised yearly ophthalmology visits Last ophthalmology visit: [ ] Plan I spent 25 minutes reviewing the record and labs, taking a history, examining the patient, discussing the treatment plan, ordering diagnostic work up and documenting in the medical record Orders: Orders Comprehensive Met. Panel 1 Year M06.9 - Rheumatoid arthritis, unspecified AMB Joint Injection/Aspiration Today M18.12 - Unilateral primary osteoarthritis of first carpometacarpal joint, left hand Complete Blood Count Auto Diff 1 Year M06.9 - Rheumatoid arthritis, unspecified C Reactive Protein 1 Year M06.9 - Rheumatoid arthritis, unspecified Erythrocyte Sedimentation Rate 1 Year M06.9 - Rheumatoid arthritis, unspecified Medications: Discontinued alpha lipoic acid Discontinued Reason: Doctor's Order 600 mg PO DAILY 30 caps 0RF Coding Level of Care Code Est Pt Level 3 (70867) Complex EM visit Add On G2211 Diagnoses Rheumatoid arthritis involving multiple sites, unspecified whether rheumatoid factor present M06.9 Rheumatoid arthritis location: multiple sites Rheumatoid factor presence: unspecified presence Primary osteoarthritis of first carpometacarpal joint of left hand M18.12 Osteoarthritis type: primary Long-term use of hydroxychloroquine Z79.899 CPT Codes Coding - 88179 - Small joint: 86715 - Small Joint ([id number])
[2024-12-21 08:49] VITALS: BP 116/62; PULSE 73; O2SAT 97; BMI 27.3
== END 2024-12-21 09:23 | disposition home or self-care (01) ==
LOC: HO.RHE 08:32
PROVIDERS: PCP Nurse Practitioner; Visit Provider Student in an Organized Health Care Education/Training Program
DX: M06.09 Rheumatoid arthritis without rheumatoid factor, multiple sites (principal); M18.12 Unilateral primary osteoarthritis of first carpometacarpal joint, left hand; Z79.899 Other long term (current) drug therapy
CPT/HCPCS: 20600; 99213

== ENCOUNTER → 2024-12-21 08:31 | Outpatient (BNVA) | payer MEDICARE, BC, SELFPAY | PROVIDERS: PCP Nurse Practitioner; Visit Provider Student in an Organized Health Care Education/Training Program | DX: M18.12 Unilateral primary osteoarthritis of first carpometacarpal joint, left hand (principal); M06.9 Rheumatoid arthritis, unspecified; Z79.899 Other long term (current) drug therapy | CPT/HCPCS: 20600; 99212; J3300 ==

== ENCOUNTER 2025-03-08 10:19 | Outpatient (AMB) | payer MEDICARE, BC, SELFPAY ==
--- NOTE | 2025-03-08 10:20 | MHC.OFFVIS ---
Intake Visit Reasons: 6m/PVR Intake Note: Patient is present for 6M MO follow up Urology Medication:DOXAZOSIN,FINASTERIDE Antibiotic Allergy:ATORVASTATIN,PENICILLIN,ROSUVASTATIN Blood Thinner:NONE PVR 999MLs [employer] Adf Consultant Required: No Accompanied by: Self / Same As Patient Allergies atorvastatin Allergy (Intermediate, Verified 03/08/25 10:21) muscle pain Penicillins Allergy (Intermediate, Verified 03/08/25 10:21) Diarrhea rosuvastatin (From Crestor) Allergy (Intermediate, Verified 03/08/25 10:21) joint pain tramadol Allergy (Intermediate, Verified 03/08/25 10:21) Diarrhea HPI Comments Details: Michi is a pleasant male. He is a patient Dr. Casanova. 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 Discussed importance of maintaining resistance exercise, balance Lower urinary tract symptoms Progressive Had recent UTI Prior episode urinary retention in 2019 was treated with Flomax which has been beneficial up till now BUBBA 2+ Recommend trial finasteride plus terazosin PFSH Medical History (Updated 04/19/24 @ 10:10 by Nhan Rubio MD) 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 BPH (benign prostatic hyperplasia) Gastritis Atrial fibrillation LORA (obstructive sleep apnea) Insomnia Mixed hyperlipidemia Surgical History Hx of knee surgery H/O hernia repair Cataract Family History Mother Cervical cancer Father Prostate cancer Maternal Aunt Rheumatoid arthritis Social History Household Members: Spouse Alcohol intake: never Patient Tobacco Use Status: Former Tobacco user Years Smoked: 23 years Current occupational status: retired 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 Review of Systems Const Denies chills and Denies fever(s) Card Reports no additional complaints and Denies syncope Resp Denies cough GI Denies abdominal pain and Denies heartburn Reports as per HPI and Denies change in libido Neuro Denies syncope Psych Denies change in libido Endo Denies change in libido Physical Exam Const General: cooperative, healthy appearing, comfortable and no acute distress Orientation/consciousness: patient oriented x3 HEENT Face and sinus: Yes normal facial exam Mouth: moist mucous membranes Neck Neck: Yes normal visual inspection, Yes full ROM and Yes trachea midline Chest Chest palpation & inspection: normal inspection of the chest Resp Effort & Inspection: normal respiratory effort, able to speak in complete sentences and no respiratory distress GI Inspection: Yes normal to inspection Back/Spine/Pelvis Cervical Spine: normal cervical lordosis Thoracic/Lumbar Spine: thoracic and lumbar spine normal to inspection Skin General skin exam: no rashes or lesions noted Neuro General: patient oriented x3, gait normal, tone normal and moves all extremities Extrem General: Yes normal to inspection and Yes capillary refill normal Assessment & Plan Assessment & Plan (1) Incomplete emptying of bladder due to benign prostatic hyperplasia: Code(s): N40.1 - Benign prostatic hyperplasia with lower urinary tract symptoms; R33.9 - Retention of urine, unspecified Category: Medical (2) Weak urinary stream: Code(s): R39.12 - Poor urinary stream Category: Medical Plan Six-month follow-up tele Medications: Refilled doxazosin 4 mg PO BEDTIME 90 tabs 1RF 90 days N40.1 - Benign prostatic hyperplasia with lower urinary tract symptoms, R33.9 - Retention of urine, unspecified finasteride 5 mg PO DAILY 90 tabs 1RF 90 days N40.1 - Benign prostatic hyperplasia with lower urinary tract symptoms, R33.9 - Retention of urine, unspecified Patient Instructions: This note is constructed using voice recognition software. While every effort has been made to ensure accuracy solar panel technician errors may have been included. Imaging studies, laboratory and physical exam results were discussed and reviewed in detail. No major barriers to patient understanding were identified. An opportunity to ask questions regarding the treatment plan was provided. All questions were answered. The patient expressed understanding and agreement with the above treatment plan. The patient is aware they should contact our office by phone for worsening of their current condition or the appearance of new urologic symptoms. Compliance is encouraged with any medications and followup testing that is ordered. It is a privilege to participate in the urologic care of your patient. If you have any questions or concerns regarding treatment for the above conditions, or other urologic issues, please do not hesitate to contact me. The office telephone contact is [phone]. Sincerely, Dr Nhan Rubio MD, [facility] - Urology Compassionate Specialist Care for the Genitourinary System Coding Level of Care Code Est Pt Level 3 (65392) Complex EM visit Add On G2211 Diagnoses Incomplete emptying of bladder due to benign prostatic hyperplasia N40.1; R33.9 Weak urinary stream R39.12
--- OUTSIDE RECORDS SUMMARY | 2025-03-08 11:50 | XMS_ITS | Encounter Summary ---
Author Organization [facility] Address [address] [place] [address] Phone Care Team Providers Care Staff Internist Office Based Only Name Role Phone Keara Ward ONE PIECE EXPANSION MAKER HAND Primary Care Provider [phone] Garrett Lee MD Unavailable [phone] Елена Casanova NP Primary Care Provider [phone] Lisa Milligan PA-C Unavailable [phone] Shereen Vazquez Primary Care Provider [phone] Encounter Details Date Type Department Care Team (Late st Contact Info) Description 03/22/2019 Procedure Pass [facility], [address] [id number] Social History Tobacco Use Types Packs/Day Years Used Date Smoking Tobacco: Former Cigarettes Q uit: 1999 Smokeless Tobacco: Never Alcohol Use Standard Drinks/Week Comments Not Currently 1 (1 standard drink = 0.6 oz pur e alcohol) weekly Sex and Gender Information Value Date Recorded Sex Assigned at Not on file Legal Sex Male 10:09 PM EDT Gender Identity Not on file Sexual Orientation Not on file documented as of this encounter Plan of Treatment Upcoming Encounters Date Type Department Care Team (Late st Contact Info) Description 03/12/2025 8:15 AM EDT Office Visit [facility] Rehabilitation Services [address] [place] [address] Veronica Martel PA [address] [place] [address] [phone] [email or web address] [email or web address] Noel, PT [address] [place] [address] [email or web address] 03/15/2025 8:15 AM EDT Office Visit [address] [address] Veronica Martel PA [address] [place] [address] [email or web address], PT [address] [place] [address] [email or web address] 03/20/2025 8:15 AM EDT Office Visit [address] [address] Veronica Martel PA [address] [place] [phone] [email or web address], PT [address] [place] [address] [email or web address] 03/23/2025 8:15 AM EDT Office Visit [address] [address] Veronica Martel PA [address] [place] [phone] [email or web address] Mora Noel, PT [address] [place] [address] [email or web address] 04/03/2025 8:15 AM EDT Office Visit [address] [address] Veronica Martel PA [address] [place] [address] [email or web address] Mora Noel, PT [address] [place] [address] documented as of this encounter Visit Diagnoses Not on filedocumented in this encounter Care Teams Staff Internist Office Based Only Relationship Specialty Start Date End Date Keara Ward ONE PIECE EXPANSION MAKER HAND [address] [place] [address] PCP - General 05/06/17 01/25/22 Елена Casanova NP [address] [place] [address] [email or web address] PCP - General 01/26/22 02/26/25 Shereen Vazquez PA [address] [place] [phone] PCP - General Physician Green Chain Off Bearer 02/27/25 Garrett Lee MD [address] [place] [address] [email or web address] Internal Medicine 07/07/19 Lisa Milligan PA-C [address] [place] [email or web address] Physician Green Chain Off Bearer 03/10/23 documented as of this encounter Additional Source Comments The information contained in this document represents components of the legal health record. It is not the complete legal health record.[facility]
== END 2025-03-08 11:01 | disposition home or self-care (01) ==
LOC: HO.HUSH 10:20
PROVIDERS: PCP Nurse Practitioner; Visit Provider Urology
DX: N40.1 Benign prostatic hyperplasia with lower urinary tract symptoms (principal); R33.9 Retention of urine, unspecified; R39.12 Poor urinary stream
CPT/HCPCS: 99213; G2211

== ENCOUNTER → 2025-03-08 10:19 | Outpatient (BNVA) | payer MEDICARE, BC, SELFPAY | PROVIDERS: PCP Nurse Practitioner; Visit Provider Urology | DX: N40.1 Benign prostatic hyperplasia with lower urinary tract symptoms (principal); R33.9 Retention of urine, unspecified; R39.12 Poor urinary stream | CPT/HCPCS: 51798; 99212 ==

== ENCOUNTER 2025-05-31 07:59 | Outpatient (REF) | payer MEDICARE, SELFPAY ==
--- OUTSIDE RECORDS SUMMARY | 2025-05-31 08:07 | XMS_ITS | Encounter Summary ---
Author Organization [facility] Address [address] [place] [address] Phone Care Team Providers Care Courtesy Clerk Name Role Phone Keara Ward NP Primary Care Provider [phone] Garrett Lee MD Unavailable [phone] Елена Casanova NP Primary Care Provider [phone] Lisa Milligan PA-C Unavailable [phone] Shereen Vazquez Primary Care Provider [phone] Encounter Details Date Type Department Care Team (Late st Contact Info) Description 03/22/2019 Procedure Pass [facility], [address] [address] Social History Tobacco Use Types Packs/Day Years [...] as of this encounter Plan of Treatment Not on file documented as of this encounter Visit Diagnoses Not on filedocumented in this encounter Care Teams Courtesy Clerk Relationship Specialty Start Date End Date Keara Ward NP [address] [place] [address] PCP - General 05/06/17 01/25/22 Елена Casanova NP [address] [place] [address] [email or web address] PCP - General 01/26/22 02/26/25 Shereen Vazquez PA [address] [place] [phone] PCP - General Physician Cad Programmer 02/27/25 Garrett Lee MD [address] [place] [address] Internal Medicine 07/07/19 Lisa Milligan PA-C [address] [place] [phone] [email or web address] Physician Cad Programmer 03/10/23 documented as of this encounter Additional Source Comments The information contained in this document represents components of the legal health record. It is not the complete legal health record.[facility]
--- OUTSIDE RECORDS SUMMARY | 2025-05-31 08:07 | XMS_ITS | Encounter Summary ---
Author Organization [facility] Address [address] [place] [address] Phone Care Team Providers Care Field Technical Assistant Name Role Phone Keara Ward WORKERS COMPENSATION CLAIMS SPECIALIST Primary Care Provider Garrett Lee MD Unavailable [phone] Елена Casanova NP Primary Care Provider Lisa Milligan PA-C Unavailable [phone] Shereen Vazquez Primary Care Provider [phone] Encounter Details Date Type Department Care Team (Latest Contact Info) Description 03/17/2019 Transcribe Orders [facility] [address] [address] Angel Newell MD [address] [place] [address] [phone] Pre-procedure lab exam (Primary Dx) Social History Tobacco Use Types Packs/Day Years [...] on file documented as of this encounter Results * Creatinine/eGFR (03/17/2019 11:17 AM EDT) CREATININE 0.60 0.5 - 1.5 mg/dL [facility] EGFR 98 >59 mL/min/1.7 3m2 [facility] Comment:If patient is black, multiply result by 1.159. Estimated glomerular filtration rate calculated using the CKD-EPI equation. Blood 03/17/2019 11:1 7 AM EDT 03/17/2019 11:28 AM EDT us Angel Newell MD LAB BLOOD BKR ORDERABLES Fin al Result [address] [address] * BUN (03/17/2019 11:17 AM EDT) BUN 10 6 - 19 mg/dL [facility] Blood 03/17/2019 11:1 7 AM EDT 03/17/2019 11:28 AM EDT us Angel Newell MD LAB BLOOD BKR ORDERABLES Fin al Result Performing Organization Address City/[facility]/ZIP Co de Phone Number [address] [address] documented in this encounter Visit Diagnoses Diagnosis Pre-procedure lab exam- Primary Pre-procedural laboratory examination documented in this encounter Care Teams Field Technical Assistant Relationship Specialty Start Date End Date Keara Ward NP [address] [place] [address] PCP - General 05/06/17 01/25/22 Елена Casanova NP [address] [place] [address] [email or web address] PCP - General 01/26/22 02/26/25 Shereen Vazquez PA [address] [place] [phone] PCP - General Physician Inspector Crystal 02/27/25 Garrett Lee MD [address] [place] [address] [email or web address] Internal Medicine 07/07/19 Lisa Milligan PA-C [address] [place] [address] [email or web address] Physician Inspector Crystal 03/10/23 documented as of this encounter Additional Source Comments The information contained in this document represents components of the legal health record. It is not the complete legal health record.[facility]
--- OUTSIDE RECORDS SUMMARY | 2025-05-31 08:08 | XMS_ITS | Encounter Summary ---
Author Organization [facility] Address [address] [place] [address] Phone Care Team Providers Care Crop Ranch Hand Name Role Phone Keara Ward ITEM PROCESSING CLERK Primary Care Provider [phone] Garrett Lee MD Unavailable [phone] Елена Casanova NP Primary Care Provider [phone] Lisa Milligan PA-C Unavailable [phone] Shereen Vazquez Primary Care Provider [phone] Reason for Referral * MRI/CAT Scan - Closed Specialty Diagnoses / Procedures Referred By Benigno tom Referred To Contact Radiology Diagnoses IPMN (intraductal papillary mucinous neoplasm) Procedures MRI Abdomen Angel Newell MD Phone: tel: fax: mailto: Referral ID Status Reason Start Date Expiration Date Visits Re quested Visits Authorized [id number] Closed 03/22/2019 03/21/2020 1 1 Encounter Details Date Type Department Care Team (Latest Contact Info) Description 03/22/2019 Transcribe Orders Virtual Department [address] [place] [address] Angel Newell MD [address] [place] [address] [email or web address] IPMN (intraductal papillary mucinous neoplasm) (Primary Dx) Social History Tobacco Use Types Packs/Day Years Used Date Smoking Tobacco: Former Cigarettes Q uit: 2000 Smokeless Tobacco: Never Alcohol Use Standard Drinks/Week [...] documented as of this encounter Results * MRI ABDOMEN WITH AND WITHOUT CONTRAST (04/01/2019 10:05 AM EDT) Anatomical Region Laterality Modality Abdomen Magnetic Resonan ce 04/01/2019 10:2 8 AM EDT Impressions 04/01/2019 10:55 AM EDT 1. Increase in size of the pancreatic cystic masses in the distal pancreatic body and tail indicative of IPMNs. No suspicious features. Stable smaller/subcentimeter cystic lesions in the mid body and uncinate process. 2. Additional findings as above. POS [id number] Narrative 04/01/2019 10:55 AM EDT COMPARISON: MRCP 08/12/[address] abdomen pelvis 08/11/2018. TECHNIQUE: Exam performed on a 1.5 Tracey high-field MRI scanner. The following sequences were obtained after the oral administration of 40 mL water: 1mL Dotarem (brand of gadoterate meglumine) in solution: Axial T1 in and out of phase and T2, coronal T2, radial thick slab MRCP, coronal oblique thin section 3-D MRCP sequences. Axial T1 in and out of phase, T1 with fat suppression and T2 with fat suppression, coronal T1 in and out of phase and T1 with fat suppression, followed by post-gadolinium multi-phase T1 series with fat suppression and coronal T1 with fat suppression. Radial thick slab MRCP, coronal oblique thin section MRCP sequences were obtained. Reformatted axial and cholangiographic MIP images are available for review. MRI PANCREAS/MRCP FINDINGS: Lung bases/heart: Heart is normal in size. No pericardial or pleural effusions. Spleen: Normal. Liver: There is a stable 1.1 cm T2 hyperintense enhancing lesion in the left lateral segment/II. No hypervascularity or contrast washout. This is likely an incidental atypical hemangioma. Gallbladder/biliary tree: Normal. Pancreas: Stable moderate diffuse fatty infiltration. Increase in size of the small nonenhancing cystic mass in the pancreatic tail body junction measuring 1.6 x 1.7 x 1.9 cm (compared to 1.3 x 1.5 x 1.6 cm) and smaller cystic mass in the tail measuring 0.7 x 0.8 x 1 cm (compared to 0.7 x 0.6 x 0.5 cm). The larger cystic mass communicates with the duct. There is a stable 3 mm cyst in the mid pancreatic body which is unchanged and communicates with duct and a 7 mm cystic lesion in the uncinate process. No main pancreatic ductal dilatation or divisum. Adrenal glands: Normal. Vasculature: Stable aortic atherosclerotic disease. No AAA or acute findings. Genitourinary: Chronic 2.4 cm simple/Bosniak one exophytic left upper renal pole cyst. New mild bladder distention which is incompletely imaged. Gastrointestinal tract: Normal. Peritoneum/retroperitoneum: No lymphadenopathy, ascites or fluid collections. Musculoskeletal: Stable diffuse lower thoracic and lower lumbar spine spondylosis. Procedure Note Erin Ordonez MD - 04/01/2019 COMPARISON: MRCP 08/12/[address] abdomen pelvis 08/11/2018. TECHNIQUE: Exam performed on a 1.5 Tracey high-field MRI scanner. Thefollowing sequences were obtained after the oral administration of 40 mLwater: 1mL Dotarem (brand of gadoterate meglumine) in solution: Axial T1in and out of phase and T2, coronal T2, radial thick slab MRCP, coronaloblique thin section 3-D MRCP sequences. Axial T1 in and out of phase, T1with fat suppression and T2 with fat suppression, coronal T1 in and out ofphase and T1 with fat suppression, followed by post-gadolinium multi-phaseT1 series with fat suppression and coronal T1 with fat suppression.Radial thick slab MRCP, coronal oblique thin section MRCP sequences wereobtained. Reformatted axial and cholangiographic MIP images are availablefor review. MRI PANCREAS/MRCP FINDINGS: Lung bases/heart: Heart is normal in size. No pericardial or pleuraleffusions. Spleen: Normal. Liver: There is a stable 1.1 cm T2 hyperintense enhancing lesion in theleft lateral segment/II. No hypervascularity or contrast washout. Thisis likely an incidental atypical hemangioma. Gallbladder/biliary tree: Normal. Pancreas: Stable moderate diffuse fatty infiltration. Increase in size ofthe small nonenhancing cystic mass in the pancreatic tail body junctionmeasuring 1.6 x 1.7 x 1.9 cm (compared to 1.3 x 1.5 x 1.6 cm) and smallercystic mass in the tail measuring 0.7 x 0.8 x 1 cm (compared to 0.7 x 0.6x 0.5 cm). The larger cystic mass communicates with the duct. There is astable 3 mm cyst in the mid pancreatic body which is unchanged andcommunicates with duct and a 7 mm cystic lesion in the uncinate process.No main pancreatic ductal dilatation or divisum. Adrenal glands: Normal. Vasculature: Stable aortic atherosclerotic disease. No AAA or acutefindings. Genitourinary: Chronic 2.4 cm simple/Bosniak one exophytic left upperrenal pole cyst. New mild bladder distention which is incompletelyimaged. Gastrointestinal tract: Normal. Peritoneum/retroperitoneum: No lymphadenopathy, ascites or fluidcollections. Musculoskeletal: Stable diffuse lower thoracic and lower lumbar spinespondylosis. IMPRESSION: 1. Increase in size of the pancreatic cystic masses in the distalpancreatic body and tail indicative of IPMNs. No suspicious features.Stable smaller/subcentimeter cystic lesions in the mid body and uncinateprocess. 2. Additional findings as above. POS [id number] Angel Newell MD IMG MR ABDOMEN Final Result documented in this encounter Visit Diagnoses Diagnosis IPMN (intraductal papillary mucinous neoplasm)- Primary Neoplasm of unspecified nature of digestive system IPMN (intraductal papillary mucinous neoplasm) Neoplasm of unspecified nature of digestive system documented in this encounter Care Teams Crop Ranch Hand Relationship Specialty Start Date End Date Keara Ward NP [address] [place] [address] PCP - General 05/06/17 01/25/22 Елена Casanova NP [address] [place] [address] [email or web address] PCP - General 01/26/22 02/26/25 Shereen Vazquez PA [address] [place] [phone] PCP - General Physician Head Of Advertising 02/27/25 Garrett Lee MD [address] [place] [address] Internal Medicine 07/07/19 Lisa Milligan PA-C [address] [place] [phone] [email or web address] Physician Head Of Advertising 03/10/23 documented as of this encounter Additional Source Comments The information contained in this document represents components of the legal health record. It is not the complete legal health record.[facility]
--- OUTSIDE RECORDS SUMMARY | 2025-05-31 08:08 | XMS_ITS | Clinical Summary ---
Author Organization [facility] Address [address] [place] [id number] Phone Care Team Providers Care Labelling Machine Operator Name Role Phone Garrett Lee MD Unavailable [phone] Lisa Milligan PA-C Unavailable [phone] Shereen Vazquez Primary Care Provider [phone] Allergies Active Allergy Reactions Criticality Noted Date Comments Atorvastatin 01/16/2019 Joint pain Rosuvastatin 01/16/2019 Joint pain Penicillins Diarrhea 01/16/2019 Tramadol Diarrhea 01/16/2019 Trazodone Myalgia 01/16/2019 Cholecalciferol (Vitamin D3) Rash Low 019 Vitamin d 50,000 units Medications morphine (MSIR) 15 MG tablet Take 15 mg by mouth 3 (three) times a day as needed. Active metoprolol tartrate (LOPRESSOR) 50 MG tablet 1 tablet with food Orally Twice a day Active tamsulosin (FLOMAX) 0.4 mg Cap Take 1 capsule (0.4 mg total) by mouth nightly. 30 capsule 9 Active Additional Information Patient taking differently:0.4 mg Oral2 times daily, Reported on 01/23/2022 pravastatin (PRAVACHOL) 40 MG tablet Take 40 mg by mouth daily. Active cholecalcifero l (VITAMIN D3) 5,000 unit capsuleIndicat ions:Inflammat ory arthritis Take 1 capsule (5,000 Units total) by mouth daily. 30 capsule 1 9 Active hydrOXYchloroQ UINE (PLAQUENIL) 200 mg tabletIndicati ons:Inflammato ry arthritis Take 1 tablet (200 mg total) by mouth 2 (two) times a day. 180 tablet 3 2 Active amitriptyline (ELAVIL) 10 MG tablet Take 10 mg by mouth nightly at bedtime as needed. 2 Active miscellaneous medical supply MiscIndication s:Bi pap machine by Miscellaneous route. Indications: Bi pap machine Active docusate sodium (COLACE) 100 MG capsule Take 100 mg by mouth 2 (two) times a day. Active morphine (MSIR) 30 MG tablet Take 15 mg by mouth 3 (three) times a day. Partial fill ok Active PAXLOVID, EUA, 300 mg (150 mg x 2)-100 mg tablets TAKE 2 NIRMATRELVIR TABLETS AND 1 RITONAVIR TABLET TOGETHER BY MOUTH TWICE DAILY FOR 5 DAYS 2 Active Active Problems Problem Noted Date Diagnosed Date Spinal stenosis of lumbar re gion without neurogenic claudication 10/28/2020 Assessment & Plan (11/03/2020 7:56 PM EDT): Joint protection, energy conservation. Gentle, regular exercise routine. Avoid falls, injuries, overuse. Keep body weight in ideal range for his height. He may benefit from topical cream such as Arnica, Biofreeze, Aspercreme versus medicated patches such as salonpas, icy hot patch 2-3 times daily and if necessary at bedtime x 3 weeks. Trigger index finger of right hand 04/29/2020 Assessment & Plan (04/29/2020 11:00 AM EDT): Procedure: After an informed oral consent, under sterile conditions using Ethyl chloride spray for local anesthesia I have injected 20 mg DepoMedrol and 0.5 cc 1% Lidocaine into R 2nd flexor tendon sheet approach uneventfully. Details of post-procedure care were explained to the patient in the office and given in writing. half-way prescription opiate use 12/20/2019 Assessment & Plan (10/28/2020 9:00 AM EDT): Take exactly as prescribed, try to limit frequency by employing non-for pharmacologic measures such as topical creams, warm packs, patches, regular relaxation/mediation/positive imagery sessions etc. Build up regular exercise routine up to the goal of 30-45 minutes daily. Monitor for increasing shortness of breath, reduced respiratory drive, increasing constipation Assessment & Plan (04/30/2020 4:06 PM EDT): Congratulated patient on decreasing the dose of morphine by 50%. When ready he may try to start alternating dosing for example 15 mg daily every other day with 15 mg twice daily every other day and when ready proceed to further reduction down to 15 mg daily and several weeks. Take exactly as prescribed, try to limit frequency by employing non-for pharmacologic measures such as topical creams, warm packs, patches, regular relaxation/mediation/positive imagery sessions etc. Build up regular exercise routine up to the goal of 30-45 minutes daily. Monitor for increasing shortness of breath, reduced respiratory drive, increasing constipation Assessment & Plan (12/20/2019 10:17 AM EDT): Take exactly as prescribed, try to limit frequency by employing non-for pharmacologic measures such as topical creams, warm packs, patches, regular relaxation/mediation/positive imagery sessions etc. Build up regular exercise routine up to the goal of 30-45 minutes daily. 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 He read pamphlet on its side effects and is hesitant to start it. He understands that side effects may occur but are infrequent however there is no guarantee that he will not get any. He prefers to continue on current Plaquenil before adding methotrexate if tolerable. Get labs monitoring today and if no worsening prior to next visit in 6 months. In preparation for MTX therapy I have asked him to get TB Gold and hepatitis B and C serologies. His last chest x-ray was on 08/14/2018 at [facility]-normal. Joint protection, energy conservation. Avoid falls, injuries, stair climbing, squatting, kneeling, heavy lifting. Warm pack versus ice pack in addition to topical creams such as Aspercreme, Arnica, Biofreeze, Blue Emu versus medicated patches such as Salonpas or icy hot 2-3 times daily and if necessary at bedtime x 3 weeks. Call with questions or problems. Assessment & Plan (04/30/2020 4:03 PM EDT): Due to ongoing polyarticular involvement I have offered Michi stronger acting disease modifying antirheumatic medication (DMARD)= methotrexate (MTX). He read pamphlet on its side effects and is hesitant to start it. He understands that side effects may occur but are infrequent however there is no guarantee that he will not get any. He prefers to continue on current Plaquenil before adding methotrexate if tolerable. Get labs monitoring today and if no worsening prior to next visit in 6 months. In preparation for MTX therapy I have asked him to get TB Gold and hepatitis B and C serologies. [facility] [facility] Joint protection, energy conservation. Avoid falls, injuries, stair climbing, squatting, kneeling, heavy lifting. Warm pack versus ice pack in addition to topical creams such as Aspercreme, Arnica, Biofreeze, Blue Emu versus medicated patches such as Salonpas or icy hot 2-3 times daily and if necessary at bedtime x 3 weeks. Call with questions or problems. Assessment & Plan (12/20/2019 8:14 PM EDT): Due to ongoing polyarticular involvement I have offered Michi stronger acting disease modifying antirheumatic medication (DMARD)= methotrexate (MTX). He read pamphlet on its side effects and is hesitant to start it. He understands that side effects may occur but are infrequent however there is no guarantee that he will not get any. He prefers to continue on current Plaquenil 200 mg daily to complete 6 months treatment course before adding methotrexate if tolerable. In preparation for MTX therapy I have asked him to get TB Gold and hepatitis B and C serologies. [facility] [facility] Joint protection, energy conservation. Avoid falls, injuries, stair climbing, squatting, kneeling, heavy lifting. Warm pack versus ice pack in addition to topical creams such as Aspercreme, Arnica, Biofreeze, Blue Emu versus medicated patches such as Salonpas or icy hot 2-3 times daily and if necessary at bedtime x 3 weeks. Call with questions or problems otherwise return in 2 mths. Assessment & Plan (09/13/2019 9:02 AM EST): Due to ongoing polyarticular involvement I am offering Michi stronger acting disease modifying antirheumatic medication (DMARD)= methotrexate. He read pamphlet on its side effects and is hesitant to start it. He understands that side effects may occur but are infrequent however there is no guarantee that he will not get any. He prefers to continue on current Plaquenil 200 mg daily to complete 6 months treatment course before adding methotrexate if tolerable. In preparation for its therapy I have asked him to get TB Gold and hepatitis B and C serologies. [facility] [facility] Joint protection, energy conservation. Avoid falls, injuries, stair climbing, squatting, kneeling, heavy lifting. Warm pack versus ice pack in addition to topical creams such as Aspercreme, Arnica, Biofreeze, Blue Emu versus medicated patches such as Salonpas or icy hot 2-3 times daily and if necessary at bedtime x 3 weeks. Call with questions or problems otherwise return in 8 weeks. Assessment & Plan (08/02/2019 6:42 PM EST): Due to ongoing polyarticular involvement I am offering Michi stronger acting disease modifying antirheumatic medication (DMARD)= methotrexate. He read pamphlet on its side effects and is hesitant to start it. He understands that side effects may occur but are infrequent however there is no guarantee that he will not get any. He prefers to continue on current Plaquenil 200 mg daily to complete 6 months treatment course before adding methotrexate if tolerable. In preparation for its therapy I have asked him to get TB Gold and hepatitis B and C serologies. [facility] [facility] Joint protection, energy conservation. Avoid falls, injuries, stair climbing, squatting, kneeling, heavy lifting. Warm pack versus ice pack in addition to topical creams such as Aspercreme, Arnica, Biofreeze, Blue Emu versus medicated patches such as Salonpas or icy hot 2-3 times daily and if necessary at bedtime x 3 weeks. Call with questions or problems otherwise return in 8 weeks. Assessment & Plan (05/04/2019 8:55 AM EDT): Due to ongoing polyarticular involvement I am offering Michi stronger acting disease modifying antirheumatic medication (DMARD)= methotrexate. I briefly reviewed with him most frequent side effects related to its use including but not limited to GI upset, liver function tests elevation and in rare cases liver failure, breathing difficulty and in severe cases pneumonitis-he was provided with pamphlet listing other side effects to monitor for and read about.. In preparation for its therapy I have asked him to get TB Gold and hepatitis B and C serologies. [facility] last [facility] [facility] Joint protection, energy conservation. Avoid falls, injuries, stair climbing, squatting, kneeling, heavy lifting. Warm pack versus ice pack in addition to topical creams such as Aspercreme, Arnica, Biofreeze, Blue Emu versus medicated patches such as Salonpas or icy hot 2-3 times daily and if necessary at bedtime x 3 weeks. Call with questions or problems otherwise return in 8 weeks. Long-term use of Plaquenil 03/29/2019 Assessment & Plan (11/03/2020 7:56 PM EDT): Take exactly as prescribed. Daily sun protection. Close follow-up with manager freelance at least every 12 months as scheduled in January 2021. Assessment & Plan (04/30/2020 4:06 PM EDT): Take exactly as prescribed. Daily sun protection. Close follow-up with manager freelance at least every 12 months as scheduled in January 2021. Assessment & Plan (12/20/2019 8:15 PM EDT): Take exactly as prescribed. Daily sun protection. Close follow-up with manager freelance at least every 12 months as scheduled in February 2020. Assessment & Plan (09/13/2019 9:03 AM EST): Take exactly as prescribed. Daily sun protection. Close follow-up with manager freelance at least every 12 months as scheduled. Assessment & Plan (08/02/2019 6:42 PM EST): Take exactly as prescribed. Daily sun protection. Close follow-up with manager freelance at least every 12 months as scheduled. Assessment & Plan (05/04/2019 8:53 AM EDT): Take exactly as prescribed. Daily sun protection. Close follow-up with manager freelance at least every 12 months as scheduled. Assessment & Plan (04/23/2019 3:35 PM EDT): Take exactly as prescribed. Daily sun protection. Close follow-up with manager freelance at least every 12 months as scheduled. Rash of body 02/20/2019 Assessment & Plan (02/20/2019 3:54 PM EDT): Take: 02/21/19 30 MG PREDNISONE 02/22/19 20 MG PREDNISONE 02/23/19 10 MG PREDNISONE X 3 DAYS THEN STOP CALL IF PROBLEMS [phone] Myalgia 01/16/2019 Assessment & Plan (01/17/2019 4:47 PM EDT): Gentle massage and regular stretching exercises. Consider warm pool therapy, regular massage versus acupuncture versus chiropractic therapy. Vitamin D insufficiency 01/16/2019 Assessment & Plan (10/28/2020 8:59 AM EDT): Continue daily supplementation at 4000 units rather than weekly 50,000 units that may have caused his diffuse skin rash Assessment & Plan (04/29/2020 10:30 AM EDT): Continue daily supplementation at 4000 units rather than weekly 50,000 units that may have caused his diffuse skin rash Assessment & Plan (12/20/2019 10:15 AM EDT): Continue daily supplementation at 4000 units rather than weekly 50,000 units that may have caused his diffuse skin rash Assessment & Plan (09/13/2019 9:04 AM EST): Continue daily supplementation at 4000 units rather than weekly 50,000 units that may have caused his diffuse skin rash Assessment & Plan (08/02/2019 6:38 PM EST): Continue daily supplementation at 4000 units rather than weekly 50,000 units that may have caused his diffuse skin rash Assessment & Plan (05/04/2019 8:53 AM EDT): Proper supplementation requirements reviewed and strongly encouraged. Serum level disclosed insufficiency therefore additional supplementation offered. Suggest daily supplementation with smaller dose 9726-9125 units rather than weekly 50,000 units that may have caused his diffuse skin rash Assessment & Plan (04/23/2019 3:31 PM EDT): Proper supplementation requirements reviewed and strongly encouraged. Serum level disclosed insufficiency therefore additional supplementation offered. Suggest daily supplementation with smaller dose 0904-3986 units rather than weekly 50,000 units that may have caused his diffuse skin rash Assessment & Plan (03/12/2019 5:25 PM EDT): Proper supplementation requirements reviewed and strongly encouraged. Serum level disclosed insufficiency therefore additional supplementation offered. Suggest daily supplementation with smaller dose 3839-5245 units rather than weekly 50,000 units that may have caused his diffuse skin rash Assessment & Plan (01/17/2019 4:44 PM EDT): Proper supplementation requirements reviewed and strongly encouraged. Serum level requested to make sure there is no need for additional supplementation. Effusion of left knee 08/13/2018 Assessment & Plan (08/15/2018 3:00 PM EST): Improved after tap. Suspected reactive knee. Ortho consulted, s/p arthrocentesis without clear evidence of infection. Negative gout. Cultures negative today. PT without concern, may be discharged home when appropriate. Fever 08/13/2018 Assessment & Plan (08/15/2018 3:00 PM EST): Likely inflammatory as appears to coicide itwh joint effusion. Last fever was 08/14 PM. Ortho consulted, perform arthrocentesis without clear evidence of infection. Likely reactive synovitis. No worsening abdominal pain to indicate recurrent pancreatitis. Rpt cxr w/o evidence of pna - Blood cx pending (no growth to date). - Cont to trend fever Acute pancreatitis without infection or necrosis 08/11/2018 Assessment & Plan (08/14/2018 6:01 PM EST): Patient presented with sudden onset of abdominal pain found to have mild pancreatitis at the tail, confirmed by MRCP. GI consulted, also perform upper endoscopy which showed evidence of acute gastric ulcer on the posterior wall of of the fundus and severe duodenitis. 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 Recommend follow-up MRI in 1 year. Given such finding, certainly pain could be a combination of alcohol induced pancreatitis and acute gastric ulcer/duodenitis. -Continue with low fat diet -Continue chronic home narcotics MS Contin 30 mg twice a day, transition from IV back to home p.o. morphine immediate release 15 mg every 4 hours as needed. Avoid IV narcotics if possible. - follow-up at GI office for pancreatic cyst, repeat radiographically in 4-6 months. - daily PPI Atrial fibrillation 08/11/2018 Assessment & Plan (08/12/2018 5:54 PM EST): Normal sinus rhythm, heart rate controlled. Previously seen Dr. Lofton, stated was low risk never placed on anticoagulation. - Cont metoprolol per home regimen -Holding off baby aspirin given peptic ulcer disease. Urinary retention 08/11/2018 Assessment & Plan (08/15/2018 2:57 PM EST): Patient has a history of BPH, previously on medication but discontinue due to ineffectiveness. Noted incidental finding on CT imaging of a distended bladder, Hammond was placed with 1500 cc urine return. Voiding trial performed, urinating spontaneously. - cont Flomax - follow-up with urology as needed Encounter for preoperative s creening laboratory testing for COVID-19 virus Resolved Problems Problem Noted Date Diagnosed Date Resolved Date Opiate use 09/13/2019 04/30/2020 Assessment & Plan (04/30/2020 4:05 PM EDT): Congratulated patient on decreasing the dose of morphine by 50%. When ready he may try to start alternating dosing for example 15 mg daily every other day with 15 mg twice daily every other day and when ready proceed to further reduction down to 15 mg daily and several weeks. Take exactly as prescribed, try to limit frequency by employing non-for pharmacologic measures such as topical creams, warm packs, patches, regular relaxation/mediation/positive imagery sessions etc. Build up regular exercise routine up to the goal of 30-45 minutes daily. Monitor for increasing shortness of breath, reduced respiratory drive, increasing constipation Assessment & Plan (09/13/2019 9:04 AM EST): Take exactly as prescribed, try to limit frequency by employing non-for pharmacologic measures such as topical creams, warm packs, patches, regular relaxation/mediation/positive imagery sessions etc. Build up regular exercise routine up to the goal of 30-45 minutes daily. Monitor for increasing shortness of breath, reduced respiratory drive, increasing constipation Inflammatory arthritis 01/16/201912/19 Assessment & Plan (04/23/2019 3:35 PM EDT): Due to ongoing polyarticular involvement I am offering Michi stronger acting disease modifying antirheumatic medication (DMARD)= methotrexate. I briefly reviewed with him most frequent side effects related to its use including but not limited to GI upset, liver function tests elevation and in rare cases liver failure, breathing difficulty and in severe cases pneumonitis-he was provided with pamphlet listing other side effects to monitor for and read about.. In preparation for its therapy I have asked him to get TB Gold and hepatitis B and C serologies. His last chest x-ray was on 08/14/2018 at [facility]-normal. Joint protection, energy conservation. Avoid falls, injuries, stair climbing, squatting, kneeling, heavy lifting. Warm pack versus ice pack in addition to topical creams such as Aspercreme, Arnica, Biofreeze, Blue Emu versus medicated patches such as Salonpas or icy hot 2-3 times daily and if necessary at bedtime x 3 weeks. Call with questions or problems otherwise return in 5 weeks. Assessment & Plan (03/12/2019 5:22 PM EDT): Due to ongoing polyarticular involvement I am offering Michi slow acting disease modifying antirheumatic medication (DMARD)= Plaquenil. I briefly reviewed with him most frequent side effects related to its use including but not limited to GI upset, skin rash, discoloration, increased sun photosensitivity and rare but possible the position of Plaquenil within the retina. Letter to his manager freelance-Dr. Peterson assuring no contraindications to use it Joint protection, energy conservation. Avoid falls, injuries, stair climbing, squatting, kneeling, heavy lifting. Warm pack versus ice pack in addition to topical creams such as Aspercreme, Arnica, Biofreeze, Blue Emu versus medicated patches such as Salonpas or icy hot 2-3 times daily and if necessary at bedtime x 3 weeks. Visco supplementation for his knees offered. Assessment & Plan (01/17/2019 4:46 PM EDT): Joint protection, energy conservation. Avoid falls, injuries, stair climbing, squatting, kneeling, heavy lifting. Warm pack versus ice pack in addition to topical creams such as Aspercreme, Arnica, Biofreeze, Blue Emu versus medicated patches such as Salonpas or icy hot 2-3 times daily and if necessary at bedtime x 3 weeks. Visco supplementation for his knees offered. Daily consumption of alcohol 08/11/2018 01/09/2022 Assessment & Plan (08/12/2018 5:49 PM EST): He states he drinks 3 beers per day. No evidence of withdrawal. 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 (Primary Dx) 03/12/2025 8:15 AM EDT Office Visit [address] [address] Veronica Martel PA Kobylarz, Sandra, PT Low back pain due to bilateral sciatica (Primary Dx) 03/08/2025 8:15 AM EDT Office Visit [address] [address] Veronica Martel PA Kobylarz, Sandra, PT Low back pain due to bilateral sciatica (Primary Dx) 03/05/2025 8:15 AM EDT Office Visit [address] [address] Veronica Martel PA Kobylarz, Sandra, PT Low back pain due to bilateral sciatica (Primary Dx) 02/28/2025 Plan of Care Documentation [address] [id number] from Last 3 Months Immunizations Immunization Administration Dates Next Due COVID-19 (Pre-05/10) Jimmie Vaccine, [id number], PF 09/28/2020 COVID-19, Unspecified Formulation 10/04/2020 INFLUENZA, SPLIT VIRUS, TRIV ALENT W/ PRESERVATIVE IM 04/06/2013,03/29/2012,04/07/2010,04/04 Influenza High-Dose Quadriva lent Preservative Free IM 03/02/2021 Influenza High-Dose Trivalen t Preservative Free IM 04/26/2019,03/01/2018,04/08/2017,04/07 Influenza Quadrivalent Prese rvative Free IM 03/22/2015 Influenza Quadrivalent w/ Pr eservative IM 04/25/2020 Influenza, Unspecified Formulation 04/06,04/17/2008,06/03/2005,05/04 Pneumococcal conjugate PCV13 06/28/2015 Pneumococcal polysaccharide PPSV23 10/29/2009 Td, unspecified formulation 05/30/2004 Tdap 12/29/2012 Zoster live 11/01/2009 Zoster recombinant 06/16/2018,03/01/2018 Social History Tobacco Use Types Packs/Day Years Used Date Smoking Tobacco: Former Cigarettes 1 39 1 961 - 2000 Smokeless Tobacco: Never Alcohol Use Standard Drinks/Week Comments Not Currently 1 (1 standard drink = 0.6 oz pur e alcohol) weekly Education Answer Date Recorded Are you interested in more education? Not on janet e 11/13/2022 Are you concerned about learning? Not on file 11/13/2022 No 11/13/2022 No 11/13/2022 Digital Access Answer Date Recorded No 12/14/2022 No 12/14/2022 Reliable internet access at home? Not on file 12/14/2022 Device with a working camera? Not on file Sex and Gender Information Value Date Recorded Sex Assigned at Not on file Legal Sex Male 10:09 PM EDT Gender Identity Not on file Sexual Orientation Not on file Last Filed Vital Signs Vital Sign Reading Time Taken Comments Blood Pressure 123/71 03/03/2022 9:57 AM EDT Pulse 66 03/03/2022 9:57 AM EDT Temperature 36.4 C (97.5 F) 01/23/2022 9:10 AM EDT Respiratory Rate 16 03/01/2019 11:04 AM EDT Oxygen Saturation 94% 01/23/2022 9:10 AM EDT Inhaled Oxygen Concentration - - Weight 80.7 kg (178 lb) 04/15/2022 8:14 AM EDT Height 176.5 cm (5' 9.5 ) 04/15/2022 8:14 AM EDT Body Mass Index 25.91 04/15/2022 8:14 AM EDT Plan of Treatment Health Maintenance Due Date Last Done Comments DEPRESSION SCREENING 1957 RSV VACCINE (1 - 1-dose 75+ series) 02/22/2019 Adult Td,Tdap Booster 12/29/2022 12/29/2012, 004 INFLUENZA VACCINE (#1) 2025 , 04/25/2020, 04/26/2019, Additional history exists COVID-19 VACCINE ( season) 2025 06/04/2021, 10/04/2020, 09/28/2020 PNEUMOCOCCAL VACCINES (50+ years) Completed 06/28/2015, 10/29/2009 ZOSTER VACCINES Completed 06/16/2018, 02/16, 11/01/2009 HEPATITIS A VACCINES Aged Out No long er eligible based on patient's age to complete this topic HIB VACCINES Aged Out No longer eligi ble based on patient's age to complete this topic IPV VACCINES Aged Out No longer eligi ble based on patient's age to complete this topic MENINGOCOCCAL VACCINES (ACWY) Aged Out No longer eligible based on patient's age to complete this topic MENINGOCOCCAL VACCINES (B) Aged Out N o longer eligible based on patient's age to complete this topic Medical Devices Not on file Insurance [facility] MEDEX SUPPLEMENT MEDICARE PART A & B [employer] MED[employer] SUPPLEMENT MEDICARE PART A & B [employer] SUPPLEMENT MEDICARE PART A & B [employer] SUPPLEMENT MEDICARE PART A & B [employer] SUPPLEMENT MEDICARE PART A & B [employer] SUPPLEMENT MEDICARE PART A & B [employer] SUPPLEMENT MEDICARE PART A & B [employer] MED[employer] SUPPLEMENT MEDICARE PART A & B [employer] MEDEX SUPPLEMENT MEDICARE PART A & B Advance Directives For more information, please contact: [phone] (9AM - 5PM [facility], Wednesday-Wednesday) Documents on File Type Date Recorded Patient Traffic Workforce Representative Expl anation Healthcare Proxy 01/26/2022 11:59 AM MOLST 08/17/2018 12:55 PM MOLST * Full Code (Presumed) (Latest Code Status on File) Date Activated Date Inactivated Comments 08/11/2018 8:40 PM 08/16/2018 6:45 PM Care Teams Labelling Machine Operator Relationship Specialty Start Date End Date Shereen Vazquez PA [address] [place] [phone] PCP - General Physician Liquor Inspector 02/27/25 Garrett Lee MD [email or web address] Internal Medicine 07/07/19 Lisa Milligan PA-C [address] [place] [address] Physician Liquor Inspector 03/10/23 Additional Source Comments The information contained in this document represents components of the legal health record. It is not the complete legal health record.[facility]
--- OUTSIDE RECORDS SUMMARY | 2025-05-31 08:08 | XMS_ITS | Encounter Summary ---
Author Organization [facility] Address [address] [place] [address] Phone Care Team Providers Care Surgical Manager Name Role Phone Keara Ward NP Primary Care Provider [phone] Garrett Lee MD Unavailable [phone] Елена Casanova NP Primary Care Provider [phone] Lisa Milligan PA-C Unavailable [phone] Shereen Vazquez Primary Care Provider [phone] Encounter Details Date Type Department Care Team (Late st Contact Info) Description 08/12/2018 Procedure Pass [facility] Endoscopy Admitting Dept Virtual Department [address] [place] [address] Social History Tobacco Use Types Packs/Day Years Used Date Smoking Tobacco: Former Cigarettes Q uit: 1999 Smokeless Tobacco: Never Alcohol Use Standard Drinks/Week Comments Yes 1 (1 standard drink = 0.6 oz [...] on filedocumented in this encounter Care Teams Surgical Manager Relationship Specialty Start Date End Date Keara Ward NP [address] [place] [address] [phone] PCP - General 05/06/17 01/25/22 Елена Casanova NP [address] [place] [address] [email or web address] PCP - General 01/26/22 02/26/25 Shereen Vazquez PA [address] [place] [phone] PCP - General Physician Administrative Sales Assistant 02/27/25 Garrett Lee MD [address] [place] [address] [email or web address] Internal Medicine 07/07/19 Lisa Milligan PA-C [address] [place] [address] Physician Administrative Sales Assistant 03/10/23 documented as of this encounter Additional Source Comments The information contained in this document represents components of the legal health record. It is not the complete legal health record.[facility]
[2025-05-31 08:09] LABS: MANUAL DIFF FLAG NO
--- OUTSIDE RECORDS SUMMARY | 2025-05-31 08:09 | XMS_ITS | Encounter Summary ---
Author Organization [facility] Address [address] [place] [address] Phone Care Team Providers Care Mobile Nurse Name Role Phone Keara Ward NP Primary Care Provider [phone] Garrett Lee MD Unavailable [phone] Елена Casanova NP Primary Care Provider [phone] Lisa Milligan PA-C Unavailable [phone] Shereen Vazquez Primary Care Provider [phone] Encounter Details Date Type Department Care Team (Late st Contact Info) Description 08/12/2018 Procedure Pass [facility], [address] [address] Social History Tobacco Use Types Packs/Day Years [...] on file documented as of this encounter Last Filed Vital Signs Vital Sign Reading Time Taken Comments Blood Pressure - - Pulse - - Temperature - - Respiratory Rate - - Oxygen Saturation - - Inhaled Oxygen Concentration - - Weight 87.1 kg (192 lb) 08/12/2018 1:54 PM EST Height 175.3 cm (5' 9 ) 08/12/2018 1:54 PM EST Body Mass Index 28.35 08/12/2018 1:54 PM EST documented in this encounter Plan of Treatment Not on file documented as of this encounter Visit Diagnoses Not on filedocumented in this encounter Care Teams Mobile Nurse Relationship Specialty Start Date End Date Keara Ward NP [address] [place] [address] PCP - General 05/06/17 01/25/22 Елена Casanova NP [address] [place] [address] [email or web address] PCP - General 01/26/22 02/26/25 Shereen Vazquez PA [address] [place] [phone] PCP - General Physician Outside B2B Sales 02/27/25 Garrett Lee MD [address] [place] [address] [email or web address] Internal Medicine 07/07/19 Lisa Milligan PA-C [address] [place] [address] Physician Outside B2B Sales 03/10/23 documented as of this encounter Additional Source Comments The information contained in this document represents components of the legal health record. It is not the complete legal health record.[facility]
--- OUTSIDE RECORDS SUMMARY | 2025-05-31 08:09 | XMS_ITS | Encounter Summary ---
Author Organization [facility] Address [address] [place] [address] Phone Care Team Providers Care Volcanology Teacher Name Role Phone Keara Ward NP Primary Care Provider [phone] Garrett Lee MD Unavailable [phone] Елена Casanova NP Primary Care Provider [phone] Lisa Milligan PA-C Unavailable [phone] Shereen Vazquez Primary Care Provider [phone] Encounter Details Date Type Department Care Team (Late st Contact Info) Description 11/01/2018 Procedure Pass [facility] Endoscopy Admitting Dept Virtual Department [address] [place] [address] Social History Tobacco Use Types Packs/Day Years [...] on filedocumented in this encounter Care Teams Volcanology Teacher Relationship Specialty Start Date End Date Keara Ward NP [address] [place] [address] PCP - General 05/06/17 01/25/22 Елена Casanova NP [address] [place] [address] [email or web address] PCP - General 01/26/22 02/26/25 Shereen Vazquez PA [address] [place] [phone] PCP - General Physician Computer Aide 02/27/25 Garrett Lee MD [address] [place] [address] [email or web address] Internal Medicine 07/07/19 Lisa Milligan PA-C [address] [place] [address] Physician Computer Aide 03/10/23 documented as of this encounter Additional Source Comments The information contained in this document represents components of the legal health record. It is not the complete legal health record.[facility]
--- OUTSIDE RECORDS SUMMARY | 2025-05-31 08:09 | XMS_ITS | Encounter Summary ---
Author Organization [facility] Address [address] [place] [address] [place] [address] Phone Care Team Providers Care Scrap Metal Burner Name Role Phone Sylvia Keara Nicolle NAILING MACHINE OPERATOR Primary Care Provider [phone] Garrett Lee MD Unavailable [phone] Елена Casanova NP Primary Care Provider [phone] Lisa Milligan PA-C Unavailable [phone] Shereen Vazquez Primary Care Provider [phone] Encounter Details Date Type Department Care Team (Latest Contact Info) Description 01/16/2019 Ancillary Orders [facility] Rheumatology [address] [place] [address] Betty Gunn MD [address] [facility], [address] [place] [address] [email or web address] Inflammatory arthritis; Myalgia Social History Tobacco Use Types Packs/Day Years [...] documented as of this encounter Results * XR KNEE 4 OR MORE VIEWS (BILATERAL) (01/16/2019 2:38 PM EDT) Anatomical Region Laterality Modality Knee Bilateral, Knee Right, Knee Left Radiographic Imaging 01/16/2019 2:44 PM EDT Impressions 01/16/2019 2:47 PM EDT Degenerative changes evident in both knees much more prominent on the left than the right as detailed above. S/S: Bilateral knee pain, osteoarthritis POS - [id number] Narrative 01/16/2019 2:47 PM EDT COMPARISON: None FINDINGS: 4 views of each knee are obtained. On the right there is patellar spurring noted. No significant knee effusion is noted. There is mild prepatellar soft tissue swelling evident. Moderate medial joint space narrowing is seen. Soft tissue calcification adjacent to the lateral femoral condyle is evident. On the left there is prominent patellofemoral spurring with a slight knee effusion. Extensive medial joint space narrowing, bony spurring, and sclerosis is noted. No overall osteopenia is seen. Procedure Note Pacheco Carrion MD - 01/16/2019 COMPARISON: None FINDINGS: 4 views of each knee are obtained. On the right there is patellar spurring noted. No significant kneeeffusion is noted. There is mild prepatellar soft tissue swelling evident.Moderate medial joint space narrowing is seen. Soft tissue calcificationadjacent to the lateral femoral condyle is evident. On the left there is prominent patellofemoral spurring with a slight kneeeffusion. Extensive medial joint space narrowing, bony spurring, andsclerosis is noted. No overall osteopenia is seen. IMPRESSION: Degenerative changes evident in both knees much more prominent on the leftthan the right as detailed above. S/S: Bilateral knee pain, osteoarthritis POS - [id number] Betty Gunn MD IMG XR LOWER EXTREMITY F inal Result documented in this encounter Visit Diagnoses Diagnosis Inflammatory arthritis Unspecified inflammatory polyarthropathy Myalgia Unspecified myalgia and myositis Inflammatory arthritis Unspecified inflammatory polyarthropathy Myalgia Unspecified myalgia and myositis documented in this encounter Care Teams Scrap Metal Burner Relationship Specialty Start Date End Date Keara Ward NP [address] [place] [address] PCP - General 05/06/17 01/25/22 Елена Casanova NP [address] [place] [address] [email or web address] PCP - General 01/26/22 02/26/25 Shereen Vazquez PA [address] [place] [phone] PCP - General Physician Fender Mechanic 02/27/25 Garrett Lee MD [address] [place] [address] [email or web address] Internal Medicine 07/07/19 Lisa Milligan, RENALDOC [address] [place] [address] [email or web address] Physician Fender Mechanic 03/10/23 documented as of this encounter Additional Source Comments The information contained in this document represents components of the legal health record. It is not the complete legal health record.[facility]
--- OUTSIDE RECORDS SUMMARY | 2025-05-31 08:09 | XMS_ITS | Encounter Summary ---
Author Organization [facility] Address [address] [place] [address] Phone Care Team Providers Care Battery Assembler Dry Cell Name Role Phone Keara Ward NP Primary Care Provider [phone] Garrett Lee MD Unavailable [phone] Елена Casanova NP Primary Care Provider [phone] Lisa Milligan PA-C Unavailable [phone] Shereen Vazquez Primary Care Provider [phone] Encounter Details Date Type Department Care Team (Late st Contact Info) Description 01/23/2022 Procedure Pass [place] Admitting Dept - Virtual Department [address] [place] [address] Social History Tobacco Use Types Packs/Day Years [...] on file documented as of this encounter Functional Status * Calculated C-SSRS Risk Score (Lifetime/Recent) Answer Date of Assessment Author No Risk Indicated 01/23/2022 7:03 AM EDT Ling De La Rosa, RN * [place] Suicide Severity Rating Scale (Screener/Recent Self-Report) Question Answer Date of Assessment Author 2. Non-Specific Active Suici yves Thoughts (Past 1 Month) No 01/23/2022 7:03 AM Iliana Jones RN documented as of this encounter Plan of Treatment Not on file documented as of this encounter Visit Diagnoses Not on filedocumented in this encounter Care Teams Battery Assembler Dry Cell Relationship Specialty Start Date End Date Keara Ward NP [address] [place] [address] PCP - General 05/06/17 01/25/22 Елена Casanova NP [address] [place] [address] [email or web address] PCP - General 01/26/22 02/26/25 Shereen Vazquez PA [address] [place] [phone] PCP - General Physician Business Banking Sales Assistant 02/27/25 Garrett Lee MD [address] [place] [address] [email or web address] Internal Medicine 07/07/19 Lisa Milligan PA-C [address] [place] [address] Physician Business Banking Sales Assistant 03/10/23 documented as of this encounter Additional Source Comments The information contained in this document represents components of the legal health record. It is not the complete legal health record.[facility]
--- OUTSIDE RECORDS SUMMARY | 2025-05-31 08:09 | XMS_ITS | Encounter Summary ---
Author Organization [facility] Address [address] [place] [address] Phone Care Team Providers Care Marketing Communications Specialist Name Role Phone Keara Ward PATIENT REGISTRATION SPECIALIST Primary Care Provider [phone] Garrett Lee MD Unavailable [phone] Елена Casanova NP Primary Care Provider Lisa Milligan PA-C Unavailable [phone] Shereen Vazquez Primary Care Provider Encounter Details Date Type Department Care Team (Late st Contact Info) Description 12/03/2021 Prep for Surgery [facility] Orthopedics & Sports Medicine [address] [place] [address] [id number] Betty Antonio MD [address] [place] [address] Orthopedics & Sports Medicine, [facility] [place], [place] [phone] Social History Tobacco Use Types Packs/Day Years [...] on filedocumented in this encounter Care Teams Marketing Communications Specialist Relationship Specialty Start Date End Date Keara Ward NP [address] [place] [address] PCP - General 05/06/17 01/25/22 Елена Casanova NP [address] [place], [place] [phone] [email or web address] PCP - General 01/26/22 02/26/25 Shereen Vazquez PA [address] [place] [phone] PCP - General Physician Hospital Insurance Clerk 02/27/25 Garrett Lee MD [address] [place] [address] [email or web address] Internal Medicine 07/07/19 Lisa Milligan PA-C [address] [place] [address] [email or web address] Physician Hospital Insurance Clerk 03/10/23 documented as of this encounter Additional Source Comments The information contained in this document represents components of the legal health record. It is not the complete legal health record.[facility]
--- OUTSIDE RECORDS SUMMARY | 2025-05-31 08:10 | XMS_ITS | Encounter Summary ---
Author Organization [facility] Address [address] [place] [address] Phone Care Team Providers Care Railroad Police Officer Name Role Phone Garrett Lee MD Unavailable [phone] Елена Casanova NP Primary Care Provider [phone] Lisa Milligan PA-C Unavailable [phone] Shereen Vazquez Primary Care Provider [phone] Encounter Details Date Type Department Care Team (Late st Contact Info) Description 02/06/2022 Procedure Pass [place] Admitting Dept - Virtual Department [address] [place] [address] Social History Tobacco Use Types Packs/Day Years [...] on filedocumented in this encounter Care Teams Railroad Police Officer Relationship Specialty Start Date End Date Елена Casanova NP [address] [place] [address] [email or web address] PCP - General 01/26/22 02/26/25 Shereen Vazquez PA [address] [place] [phone] PCP - General Physician [place]hel 02/27/25 Garrett Lee MD [email or web address] Internal Medicine 07/07/19 Lisa Milligan PA-C [address] [place] [address] [email or web address] Physician [place] 03/10/23 documented as of this encounter Additional Source Comments The information contained in this document represents components of the legal health record. It is not the complete legal health record.[facility]
[2025-05-31 08:40] LABS: Hematocrit 38.0 % (42.0-52.0); Hemoglobin 12.7 g/dl (14.0-18.0); Imm Gran Abs Auto 0.01 X10*3/uL (0.00-0.03); Imm Gran Pct Auto 0.3 % (0.0-0.4); Lymphocytes Absolute Auto 0.9 X10*3/uL (1.2-4.9); Mean Corpuscular HGB Conc 33.4 g/dl (31.0-36.0); Mean Corpuscular Hemoglobin 31.1 pg (27.0-33.0); Mean Corpuscular Volume 92.9 fL (80.0-98.0); NRBC Abs Auto 0.000 X10*3/uL (0.0-0.012); NRBC Pct Auto 0.0 /100WBC (0.0-0.2); Platelet Count 131 X10*3/uL (160-400); Red Blood Count 4.09 X10*6/uL (4.60-5.80); White Blood Count 4.0 X10*3/uL (4.8-10.8)
[2025-05-31 09:18] LABS: Alanine Aminotransferase 22 U/L (0-40); Albumin Level 4.2 g/dL (3.5-5.0); Alkaline Phosphatase 49 U/L (39-117); Anion Gap 13 (12-20); Aspartate Amino Transferase 31 U/L (5-37); Blood Urea Nitrogen 11 mg/dL (9-16); Calcium 9.2 mg/dL (8.4-10.2); Carbon Dioxide 27 mmol/L (22-29); Chloride 107 mmol/L (96-108); Estimated Glomerular Filt Rate > 60; Potassium 3.9 mmol/L (3.3-5.1); Sodium 143 mmol/L (135-145); Total Protein 6.3 g/dL (6.5-8.0)
== END 2025-05-31 08:00 | disposition home or self-care (01) ==
LOC: HO.LAB 07:59
PROVIDERS: Visit Provider Student in an Organized Health Care Education/Training Program
DX: Z79.899 Other long term (current) drug therapy (principal)
CPT/HCPCS: 36415; 80053; 85025; 85652; 86140